=== PATIENT | female | born 1935 | race Caucasian/White ===

== ENCOUNTER 2016-08-24 21:24 | Inpatient (IN) | payer MEDICARE, BC ==
[~2016-08-24] VITALS: Ht 149.9 cm; Wt 53.1 kg
[2016-08-24 19:00] VITALS: BP 183/52
[~2016-08-24 21:24] MED LIST: AMITIZA24 MCG PO; BENADRYL25 MG PO; CARAFATE1 G PO; ELIQUIS2.5 MG PO; GUAIFENESI100 MG/5 M; K-DUR20 MEQ PO; LASIX40 MG PO; LOMOTIL TABLET1 TAB PO; LONITEN2.5 MG PO; METOPROLOL TART50 MG PO; NEPHRO-VITE RX1 TAB PO; NORVASC10 MG PO; PHENERGAN25 M1; PRAVACHOL20 MG PO; PRILOSEC20 MG PO; ULTRAM50 MG PO; VITAMIN D31000 UNI2 PO
[2016-08-24] MEDS ORDERED: PHOSLO667 MG PO (21:41)
[2016-08-24] MEDS ORDERED: MECLIZINE HCL25 MG PO (21:42)
[2016-08-24] MEDS ORDERED: CELEXA20 MG PO ×2 (21:43→21:53)
[2016-08-24] MEDS ORDERED: CARDIZEM CD180 MG PO (21:53)
[2016-08-24] MEDS ORDERED: ATIVAN0.5 MG PO (21:54)
[2016-08-24] MEDS ORDERED: TEMAZEPAM30 MG PO (21:54)
[2016-08-24] MEDS ORDERED: COUMADIN2.5 MG PO (21:54)
--- NOTE | 2016-08-24 23:55 | NUR ---
RESTING ON LEFT SIDE, RESPERATIONS EVEN, NO S/S DISTRESS NOTED.
[2016-08-25] VITALS: BP 130/108
--- NOTE | 2016-08-25 03:12 | NUR ---
PARCEL POST OFFICER AT BEDSIDE TO OBTAIN VITALS, CALL LIGHT IN REACH. WILL CONTINUE TO MONITOR.
[2016-08-25 04:34] VITALS: BP 177/55
--- NOTE | 2016-08-25 05:13 | NUR ---
PT YELLING OUT FOR HER , INFORMED HER THAT HE WENT TO ICU WAITING AREA TO GET SOME REST AND WILL BE BACK IN A LITTLE BIT, PT STATED SHE NEEDS MANOHAR RIGHT NOW, ANTONINA ESPINOZA WALKED OVER TO ICU WAITING AREA AND BROUGHT PTS BACK TO HER ROOM.
[2016-08-25 06:00] LABS: BASOPHILS 0.4 % (0-2); EOSINOPHILS 2.3 % (0-7); HEMATOCRIT 38.4 % (36.0-48.0); HEMOGLOBIN 12.2 g/dL (12-16); IMMATURE GRANULOCYTES 0.9 % (0-5); LYMPHOCYTES 20.8 % (15-50); MCH 31.1 pg (26.0-34.0); MCHC 31.8 g/dL (31.0-37.0); MEAN PLATELET VOLUME 11.1 fL (7.4-10.4); MONOCYTES 10.1 % (2-11); NEUTROPHILS 65.5 % (40-80); PLATELET COUNT 232 10x3/uL (130-400); RBC 3.92 10x6/uL (4.00-5.40); RDW 13.3 % (11.5-14.5); WBC 10.6 10x3/uL (4.8-10.8)
[2016-08-25 06:16] LABS: ANION GAP 15.5 mmol/L (8-16); CALCIUM 8.2 mg/dL (8.5-10.1); CARBON DIOXIDE 28.4 mmol/L (21.0-32.0); CREATININE - SERUM 5.3 mg/dL (0.6-1.3); POTASSIUM - SERUM 3.9 mmol/L (3.5-5.1)
--- NOTE | 2016-08-25 07:57 | NUR ---
0715- AM ROUNDING- RECEIVED REPORT FROM DRAW FIRE OPERATOR NURSE GREGG. PT IS CURRENTLY LAYING IN BED ON BACK WITH EYES OPEN RESTING. IS AT BEDSIDE. PT APPEARS PLEASANTLY CONFUSED. ON ROOM AIR. NO MONITOR. IV SEEN TO RIGHT HAND THAT IS CURRENTLY SALINE LOCKED. RESERVE LEFT ARM FOR AVF. NO NEED AT CURRENT TIME. WILL CONTINUE TO MONITOR AND CONTINUE WITH PLAN OF CARE.
[2016-08-25 08:19] VITALS: BP 150/46
--- NOTE | 2016-08-25 09:45 | NUR ---
PT IS STATING THERE ARE "SNAKES IN HER WINDOW". PT ALSO STATES THAT HER SKIN IS PEELING OFF (REFFERING TO THE TAPE ON HER IV CATHETER).
--- NOTE | 2016-08-25 11:14 | NUR ---
CALLED INTO PTS ROOM FOR PT GETTING OOB. BED ALARM WAS ON. PT HAD TAKEN NON-SKID SOCKS OFF AND HAD SHOES ON. ASSISTED PT BACK TO BED. PLACED NON-SKID SOCKS BACK ON PT AND TURNED BED ALARM ON. PT HAD TAKEN IV (TO RIGHT HAND) OUT. UNABLE TO KEEP IV CATHETER IN PTS RIGHT ARM (RESERVE LEFT ARM FOR AVF). BED IS IN LOW POSITION AND SIDE RAILS ARE UP X2. INFORMED PT TO STAY IN BED AND USE CALL LIGHT IF NEEDING ASSISTANCE OOB. IS NOW AT BEDSIDE. WILL CONTINUE TO MONITOR.
[2016-08-25 12:06] VITALS: BP 142/44
--- NOTE | 2016-08-25 13:36 | NUR ---
BED IS RESTING IN BED. IS AT BEDSIDE. BED ALARM IS ON, BED IS IN LOW POSTION, CALL LIGHT IS IN REACH, AND NON-SKID SOCKS ARE ON. WILL CONTINUE TO MONITOR.
--- NOTE | 2016-08-25 14:16 | NUR ---
Spoke with Ladonna RN in [facility]. She stated that the patient would be accepted if the PCP feels she is medically stable. Call has been placed to Sandrita Almanza APN for renal.
[2016-08-25 14:34] VITALS: Ht 149.9 cm; Wt 53.1 kg
[2016-08-25] MEDS ORDERED: ZYPREXA2.5 MG PO ×2 (14:50)
[2016-08-25 15:47] VITALS: BP 128/40
--- NOTE | 2016-08-25 17:13 | NUR ---
Patient Name: DANIELLA COFFEY Admission Status: Elective Accout number: [id number] Admission Date: 08-24-2016 : 1935 Admission Diagnosis: Attending: NICOLLE Current LOS: 1 Anticipated DC Date: 08-25-2016 Planned Disposition: Inpatient Psych Facility Primary Insurance: MEDICARE A & B PLANNED EXTERNAL PROVIDER: CORRECTION Discharge Planning Comments: * Is the patient Alert and Oriented? Yes 0 * How many steps to enter\\exit or inside your home? 4 0 * PCP DR. CINTHYA NEGRETE 0 * Pharmacy [facility] IN [place] OR [facility] MAIL ORDER 0 * Preadmission Environment Home with Family 0 * ADLs Partial Dependent 0 * Partial ADLs (Assistance needed) Medication Management 0 * Equipment Other 0 * Other Equipment HEARING AID NO MEDICAL EQUIPMENT PROVIDER PREFERENCE 0 * List name and contact numbers for known caregivers / representatives who currently or will assist patient after discharge: ELIZABETH COFFEY, SPOUSE, 0 * Community resources currently utilized Home Health Other 0 * Please name any agencies selected above. [facility] OUTPATIENT DIALYSIS, [facility], [place], 3 DAYS WEEKLY, 1000AM, [facility] 0 * Additional services required to return to the preadmission environment? Yes * Can the patient safely return to the preadmission environment? Yes 0 * Has this patient been hospitalized within the prior 30 days at any hospital? No 0 CM RECEIVED DISCHARGE ORDER, MET WITH PT IN ROOM. INITIAL ASSESSMENT COMPLETED PER CHECKLIST ABOVE. PT IS VERY HARD OF HEARING, HEARING AIDE IN LEFT EAR DID NOT APPEAR TO BE WORKING AT ALL. PT REPORTS SHE IS AWARE SHE IS GOING DOWNSTAIRS TODAY SO THEY CAN "CHECK HER BLOOD" AND STATES SHE HAS TALKED TO THE DOCTOR AND HER ABOUT IT TODAY. CM EXLAINED CORRECTION SERVICES TO PT, PT IN AGREEMENT WITH DISCHARGE "DOWN THERE" AND AGAIN REPORTS HE KNOWS AND THE DOCTOR TALKED TO THEM ABOUT IT ALREADY. Carpentry Foreman: Jesus Estrada
--- NOTE | 2016-08-25 18:25 | NUR ---
D/C - VERBAL D/C INSTRUCTIONS GIVEN TO PT AND . CALLED REPORT TO [facility]. WRITTEN D/C INSTRUCTIONS GIVEN TO NURSE IN [facility]. NO IV OR MONITOR TO REMOVE. LEFT FLOOR VIA WHEELCHAIR WITH HOSPITAL STAFF TO [facility]. WILL D/C
== END 2016-08-25 18:29 | disposition short-term general hospital (02) | DRG 947 ==
LOC: D.M2 21:24
PROVIDERS: ADMIT Internal Medicine Nephrology
DX: R41.0 Disorientation, unspecified (principal); N18.6 End stage renal disease; I13.2 Hypertensive heart and chronic kidney disease with heart failure and with stage 5 chronic kidney disease, or end stage renal disease; G30.1 Alzheimer's disease with late onset; F02.80 Dementia in other diseases classified elsewhere, unspecified severity, without behavioral disturbance, psychotic disturbance, mood disturbance, and anxiety; J44.9 Chronic obstructive pulmonary disease, unspecified; K21.9 Gastro-esophageal reflux disease without esophagitis; I50.9 Heart failure, unspecified; Z99.2 Dependence on renal dialysis; Z86.73 Personal history of transient ischemic attack (TIA), and cerebral infarction without residual deficits; Z87.891 Personal history of nicotine dependence

== ENCOUNTER 2016-08-25 15:29 | Inpatient (IN) | payer MEDICARE, BC ==
[~2016-08-25] VITALS: Ht 151.8 cm; Wt 52.8 kg
[~2016-08-25 15:29] MED LIST changes: +ATIVAN0.5 MG PO; +CARDIZEM CD180 MG PO; +CELEXA20 MG PO; +COUMADIN2.5 MG PO; +MECLIZINE HCL25 MG PO; +PHOSLO667 MG PO; +TEMAZEPAM30 MG PO; +ZYPREXA2.5 MG PO
--- NOTE | 2016-08-25 18:30 | NUR ---
PATIENT ADMITTED FROM [facility], SHE HAS INCREASED CONFUSION AND SHE HAS BEEN HALLUCINATING SEEING SNAKES OUT THE HOSPITAL WINDOW, SHE ALSO BELIEVES HER SKIN IS PEELING. PATIENT IS UNABLE TO WALK, SHE IS UNSTEADY. SPOUSE TOOK HER JEWLRY HOME. PATIENT IS [place] AND CAN NOT HEAR AT ALL IN HER RIGHT EAR, SHE CAN HEAR OUT OF THE LEFT EAR. 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 SHE IS ON DIALYSIS, SHE HAS A FISTULA IN HER LEFT UPPER ARM. SHE WEARS GLASSES THAT ARE OF YELLOW METAL FRAME. SHE IS IN A W/C AND SHE IS PLEASANT AND CLAM. NO SIGNS OF HALLUCINATIONS YET.
[2016-08-25 19:00] VITALS: BP 118/64
[2016-08-25 19:17] VITALS: BP 118/64; BMI 23.4
--- NOTE | 2016-08-25 21:03 | NUR ---
RECEIVED PT SITTING IN WC, PT IS SMILING, ADM 2100 MEDS PO PER MD ORDERS WITH FRESH H20, PT COOPERATIVE IN TAKING MEDS, WILL CONTINUE POC
[2016-08-25 21:53] VITALS: BP 118/64
[2016-08-26 06:47] LABS: HEMOGLOBIN A1C 5.2 % (4.8-6.0)
[2016-08-26 06:57] LABS: CHOL - HDL RATIO 2.5 ratio (2.3-4.1); LDL-HDL RATIO 1.3 ratio (1.5-3.5); THYROID STIMULATING HORMONE 2.05 uIU/mL (0.36-3.74)
[2016-08-26 07:37] VITALS: BMI 23.5
[2016-08-26 07:59] VITALS: BP 163/53
--- NOTE | 2016-08-26 09:00 | NUR ---
ORIENTED TO PERSON AND PLACE. SHE IS VERY [place] AND DOESN'T UNDERSTAND WHAT IS BEING SAID. LEFT FOREARM HAS AV FISTULA WITH A GOOD THRILL NOTED. DR. MICHAEL LEGER EVENTS ASSOCIATE WAS NOTIFIED OF RENAL CONSULT. ADMINISTERED PRESCRIBED MEDS. VSS. MEDICATION COMPLIANT. FALL PRECAUTIONS MAINTAINED. WILL CONTINUE PLAN OF CARE.
[2016-08-26 12:03] LABS: ALBUMIN 3.4 g/dL (3.4-5.0); ANION GAP 18.2 mmol/L (8-16); BILIRUBIN - TOTAL 0.36 mg/dL (0.2-1.3); CALCIUM 8.9 mg/dL (8.5-10.1); CARBON DIOXIDE 25.8 mmol/L (21.0-32.0); PROTEIN - SERUM 7.1 g/dL (6.4-8.2); URIC ACID 5.2 mg/dL (2.6-7.2)
[2016-08-26 12:08] LABS: BASOPHILS 0.6 % (0-2); HEMATOCRIT 39.8 % (36.0-48.0); HEMOGLOBIN 12.9 g/dL (12-16); IMMATURE GRANULOCYTES 0.9 % (0-5); LYMPHOCYTES 24.4 % (15-50); MCH 31.5 pg (26.0-34.0); MCHC 32.4 g/dL (31.0-37.0); MCV 97.3 fL (80.0-100.0); MEAN PLATELET VOLUME 11.5 fL (7.4-10.4); MONOCYTES 9.1 % (2-11); PLATELET COUNT 262 10x3/uL (130-400); RBC 4.09 10x6/uL (4.00-5.40); RDW 13.2 % (11.5-14.5); WBC 11.8 10x3/uL (4.8-10.8)
[2016-08-26 12:11] LABS: CREATININE - SERUM 7.5 mg/dL (0.6-1.3)
[2016-08-26 13:14] VITALS: Ht 151.8 cm; Wt 52.8 kg
[2016-08-26 15:46] LABS: INR 1.06 (0.85-1.17); PROTIME 13.6 SECONDS (11.6-15.0)
--- NOTE | 2016-08-26 18:00 | NUR ---
RECEIVED IN DINING ROOM AREA SITTING AT TABLE WITH PEERS. CALM AND COOPERATIVE WITH CARE AND ASSESSMENTS. NO SIGNS OF HALLUCIANTIONS. REDIRECT AND REORIENT NEEDED. CONTINUES TO SIT QUIETLY IN DINING AREA. CONTINUE PLAN OF CARE
[2016-08-26 19:30] VITALS: BP 154/82
[2016-08-26 21:32] VITALS: BP 154/82
[2016-08-27 06:19] LABS: BASOPHILS 0.3 % (0-2); EOSINOPHILS 2.1 % (0-7); HEMATOCRIT 36.8 % (36.0-48.0); IMMATURE GRANULOCYTES 0.9 % (0-5); LYMPHOCYTES 28.5 % (15-50); MCH 31.1 pg (26.0-34.0); MCHC 32.6 g/dL (31.0-37.0); MEAN PLATELET VOLUME 10.8 fL (7.4-10.4); MONOCYTES 9.3 % (2-11); NEUTROPHILS 58.9 % (40-80); PLATELET COUNT 249 10x3/uL (130-400); RBC 3.86 10x6/uL (4.00-5.40); RDW 13.1 % (11.5-14.5)
[2016-08-27 06:21] LABS: MCV 95.3 fL (80.0-100.0)
[2016-08-27 06:44] LABS: ANION GAP 23.6 mmol/L (8-16); CALCIUM 8.4 mg/dL (8.5-10.1); CARBON DIOXIDE 21.6 mmol/L (21.0-32.0); CREATININE - SERUM 9.3 mg/dL (0.6-1.3); PHOSPHOROUS 7.6 mg/dL (2.5-4.9); POTASSIUM - SERUM 4.2 mmol/L (3.5-5.1)
[2016-08-27 07:19] LABS: RAPID PLASMA REAGIN Non Reactive (Non Reactive)
[2016-08-27 08:16] LABS: FOLATE (FOLIC ACID) - SERUM 16.9 ng/mL (>3.0)
--- NOTE | 2016-08-27 09:38 | NUR ---
PT REFUSES TO EAT BREAKFAST KEEPS FALLING BACK ASLEEP. ATTEMPTED SEVERAL TIMES TO GIVE PT HER MORNING MEDICATIONS AND SHE HOLLERS "STOP YOU'RE HURTING ME" PTS MANUAL BP VIA R.ARM IS 128/50 WITH HR 94. WILL CONTINUE TO MONITER AND TRY MEDICATIONS AGAIN LATER WHEN SHE WAKES UP A LITTLE MORE. NIGHTSHIFT NURSE STATES PT STAYED AWAKE ALL NIGHT SO SHE IS MOST LIKELY CATCHING UP ON SLEEP. PT APPARENTLY MISSED DIALYSIS YESTERDAY AND IS GONNA BE DIALYZED TODAY. PT LEAVING DAYROOM NOW TO GO BACK TO HER ROOM TO HAVE DIALYSIS. WILL CTM.
[2016-08-27 09:57] VITALS: BP 128/50
--- NOTE | 2016-08-27 11:06 | NUR ---
PT IN DIALYSIS AND SLEEPING. NO CURRENT NEEDS NOTED. WILL CTM.
[2016-08-27 13:11] LABS: VITAMIN D 25 HYDROXY 14.1 ng/mL (30.0-100.0)
--- NOTE | 2016-08-28 00:51 | NUR ---
B) Recieved patient in the day room, alert and oriented to self, calm and cooperative this shift, no behaviors noted, I) Administered perscribed medications, monitored for falls and safety, R) Medication compliant, friendly and pleasant, P) Continue plan of care.
[2016-08-28 07:00] VITALS: BP 110/50
[2016-08-28 07:28] LABS: BASOPHILS 0.5 % (0-2); EOSINOPHILS 1.8 % (0-7); HEMATOCRIT 40.8 % (36.0-48.0); HEMOGLOBIN 13.2 g/dL (12-16); LYMPHOCYTES 24.5 % (15-50); MCH 31.4 pg (26.0-34.0); MCHC 32.4 g/dL (31.0-37.0); MCV 97.1 fL (80.0-100.0); MEAN PLATELET VOLUME 11.7 fL (7.4-10.4); MONOCYTES 11.4 % (2-11); NEUTROPHILS 60.8 % (40-80); PLATELET COUNT 228 10x3/uL (130-400); RDW 13.4 % (11.5-14.5); WBC 11.3 10x3/uL (4.8-10.8)
[2016-08-28 10:42] LABS: ANION GAP 22.9 mmol/L (8-16); CALCIUM 8.9 mg/dL (8.5-10.1); CARBON DIOXIDE 24.1 mmol/L (21.0-32.0); CREATININE - SERUM 7.1 mg/dL (0.6-1.3); PHOSPHOROUS 5.7 mg/dL (2.5-4.9)
--- NOTE | 2016-08-28 11:00 | NUR ---
B) SITTING QUIETLY IN W/C. WATCHING TV. AWAKE AND ALERT. ABLE TO EXPRESS NEEDS. I) ADMINISTER PRESCRIBED MEDS. VSS.
--- NOTE | 2016-08-28 19:57 | NUR ---
RECEIVED IN DAYROOM. SITTING IN A WHEELCHAIR. CALM AND COOPERATIVE WITH CARE AND ASSESSMENTS. NO SIGNS OF HALLUCIANTIONS. SOCIALIZING AT TIMES WITH PEERS. ENCOURAGE TO EXPRESS NEEDS. CONTINUE PLAN OF CARE.
[2016-08-28 21:39] VITALS: BP 100/39
[2016-08-29 06:22] LABS: BASOPHILS 0.3 % (0-2); EOSINOPHILS 2.2 % (0-7); HEMATOCRIT 40.1 % (36.0-48.0); HEMOGLOBIN 12.8 g/dL (12-16); IMMATURE GRANULOCYTES 1.3 % (0-5); LYMPHOCYTES 22.7 % (15-50); MCH 31.1 pg (26.0-34.0); MCHC 31.9 g/dL (31.0-37.0); MCV 97.6 fL (80.0-100.0); MEAN PLATELET VOLUME 11.6 fL (7.4-10.4); MONOCYTES 8.3 % (2-11); NEUTROPHILS 65.2 % (40-80); PLATELET COUNT 228 10x3/uL (130-400); RBC 4.11 10x6/uL (4.00-5.40); RDW 13.3 % (11.5-14.5)
[2016-08-29 06:23] LABS: WBC 14.3 10x3/uL (4.8-10.8)
[2016-08-29 06:34] LABS: INR 1.2 (0.85-1.17); PROTIME 15.1 SECONDS (11.6-15.0)
[2016-08-29 06:41] LABS: ANION GAP 18.6 mmol/L (8-16); CALCIUM 8.4 mg/dL (8.5-10.1); CARBON DIOXIDE 27.2 mmol/L (21.0-32.0); CREATININE - SERUM 8.5 mg/dL (0.6-1.3); PHOSPHOROUS 6.7 mg/dL (2.5-4.9); POTASSIUM - SERUM 3.8 mmol/L (3.5-5.1)
[2016-08-29 07:00] VITALS: BP 100/48
--- NOTE | 2016-08-29 10:34 | NUR ---
NORVAS 10MG HELD DUE TO B/P 100/48.
--- NOTE | 2016-08-29 10:44 | NUR ---
ORIENTED TO PERSON ONLY. PT IS VERY [place] BUT SHE IS ABLE TO EXPRESS NEEDS TO STAFF. MEDICATIONS GIVEN BUT HER NORVASC WAS HELD DUE TO LOW BLOOD PRESSURE. NO AGGRESSION NOTED. NO HALLUCINATIONS NOTED. FALL PRECAUTIONS MAINTAINED. WILL CONTINUE TO MONITOR AND CONTINUE WITH PLAN OF CARE.
[2016-08-29 21:05] VITALS: BP 118/48
--- NOTE | 2016-08-29 22:49 | NUR ---
RECEIVED IN DAYROOM. SITTING IN A WHEELCHAIR SOCIALIZING WITH PEERS. CALM AND COOPERATIVE WITH CARE AND ASSESSMENTS. NO SIGNS OF HALLUCINATIONS. ENCOURAGE TO EXPRESS NEEDS. CONTINUE PLAN OF CARE
--- NOTE | 2016-08-30 06:50 | NUR ---
PATIENT FALL. FOUND IN FLOOR. BOX ALARM REMOVED. SKIN TEAR TO LEFT ELBOW. SMALL SWOLLEN AREA ON HEAD. DOCTOR MATT CALLED. FAMILY CALLED AND INFORMED OF FALL. CHANGING SAFETY BOX ALARM TO A TANYA ALARM. START NEURO CHECKS.
[2016-08-30 07:09] LABS: BASOPHILS 0.3 % (0-2); EOSINOPHILS 0.9 % (0-7); HEMATOCRIT 38.3 % (36.0-48.0); HEMOGLOBIN 12.5 g/dL (12-16); IMMATURE GRANULOCYTES 1.5 % (0-5); LYMPHOCYTES 13.3 % (15-50); MCH 31.5 pg (26.0-34.0); MCHC 32.6 g/dL (31.0-37.0); MCV 96.5 fL (80.0-100.0); MEAN PLATELET VOLUME 11.1 fL (7.4-10.4); MONOCYTES 7.1 % (2-11); NEUTROPHILS 76.9 % (40-80); RBC 3.97 10x6/uL (4.00-5.40); RDW 13.3 % (11.5-14.5)
[2016-08-30 07:22] LABS: ANION GAP 22.7 mmol/L (8-16); CALCIUM 8.5 mg/dL (8.5-10.1); CARBON DIOXIDE 24.3 mmol/L (21.0-32.0); CREATININE - SERUM 10.4 mg/dL (0.6-1.3); PHOSPHOROUS 7.2 mg/dL (2.5-4.9)
[2016-08-30 07:23] LABS: PLATELET COUNT 285 10x3/uL (130-400); WBC 19.9 10x3/uL (4.8-10.8)
--- NOTE | 2016-08-30 07:30 | NUR ---
RECEIVED IN HALLWAY SITTING IN W/C. NO AGGRESSION OR HALLUCINATIONS NOTED. VERY [place], HAS A HEARING AIDE FOR THE LEFT EAR ONLY. COOPERATIVE WITH ASSESS- MENT, BUT TRIES TO GET UP WITHOUT ASKING FOR ASSISTANCE. MONITOR FOR SAFETY AND FALL PRECAUTIONS. WILL CONTINUE PLAM OF CARE.
--- NOTE | 2016-08-30 07:45 | NUR ---
DR GUTIERREZ ROUNDING. NEW ORDERS RECEIVED AND NOTED. DR RODRIGUEZ ALSO ROUNDING. NEW ORDERS RECEIVED.
[2016-08-30 09:59] VITALS: BP 98/48
--- NOTE | 2016-08-30 15:00 | NUR ---
HEMODIALYSIS AT PATIENT'S BEDSIDE IN PROGRESS.
--- NOTE | 2016-08-30 20:50 | NUR ---
RECEIVED IN BEDROOM. LAYING IN BED WITH EYES OPEN. CALM AND COOPERATIVE WITH CARE AND ASSESSMENTS. CALM AND COOPERATIVE WITH CARE AND ASSESSMENTS. NO SIGNS OF HALLUCINATIONS. RESTING IN BED. CONTINUE PLAN OF CARE
[2016-08-31 06:24] LABS: BASOPHILS 0.4 % (0-2); EOSINOPHILS 2.1 % (0-7); HEMATOCRIT 40.3 % (36.0-48.0); HEMOGLOBIN 13.2 g/dL (12-16); IMMATURE GRANULOCYTES 1.3 % (0-5); MCH 31.7 pg (26.0-34.0); MCHC 32.8 g/dL (31.0-37.0); MCV 96.9 fL (80.0-100.0); MEAN PLATELET VOLUME 11.2 fL (7.4-10.4); MONOCYTES 11.3 % (2-11); NEUTROPHILS 71.9 % (40-80); PLATELET COUNT 217 10x3/uL (130-400); RBC 4.16 10x6/uL (4.00-5.40); RDW 13.4 % (11.5-14.5); WBC 12.1 10x3/uL (4.8-10.8)
[2016-08-31 06:33] LABS: INR 1.46 (0.85-1.17); PROTIME 17.6 SECONDS (11.6-15.0)
[2016-08-31 06:57] LABS: ANION GAP 22.2 mmol/L (8-16); CALCIUM 8.9 mg/dL (8.5-10.1); CREATININE - SERUM 6.5 mg/dL (0.6-1.3); PHOSPHOROUS 5.2 mg/dL (2.5-4.9); POTASSIUM - SERUM 4.2 mmol/L (3.5-5.1)
[2016-08-31 08:30] VITALS: BP 118/53
[2016-08-31 09:00] VITALS: BP 118/53
--- NOTE | 2016-08-31 15:16 | NUR ---
B) PATIENT IS AWAKE AND ALERT, SHE DID FUSS A LITTLE BIT THIS AM AT [place] RN BECAUSE SHE WANTED TO STAND AND SHE HAS FALLEN BEFORE AND [place] WAS REDIRECTING HER TO STAY SEATED, PATIENT SAID "I DON'T LIKE IT WHEN PEOPLE DON'T LISTEN TO ME" PATIENT IS UNSTEADY AND HAS FALLEN. PATIENT HAS POOR SHORT TERM MEMORY RECALL AND INTERMITTANT CONFUSION. I) PROVIDE PRESCRIBED MEDS. R) PATIENT IS COMPLIANT WITH MEDS AND UNIT MILIEU. P) CONTINUE POC.
[2016-08-31 19:30] VITALS: BP 135/64
--- NOTE | 2016-09-01 00:13 | NUR ---
B) Recieved patient in the hallway alert and oriented to self and being in a hospital, calm and cooperative with care and assessment, I) Administered perscribed medications, monitored for falls and safety, R) Medication compliant, resting quietly now, P) Continue plan of care.
[2016-09-01 07:31] VITALS: BP 132/38
--- NOTE | 2016-09-01 08:00 | NUR ---
B) EXPLAINED TO PATIENT THAT WE NEED TO GET AN IN AND OUT CATHETER FOR A URINE SAMPLE. SHE SAYS "OH, WHAT'S WRONG WITH ME" EXPLAINED THAT NOTHING IS WROMNG IT IS A ROUTINE TEST. SHE SAID "CAN I WAIT UNTIL AFTER BREAKFAST" PATIENT IS ALERT AND PLEASANT, ORIENTED TO PERSON. I) PROVIDE PRESCRIBED MEDS. R) PATIENT IS COMPLIANT WITH MEDS AND UNIT MILIEU. PATIENT IS SITTING IN A KYLE CHAIR AND SHE NEEDS STAFF ASSIST TO STAND AND TRANSFER, PATIENT NEEDS REDIRECTION TO NOT STAND ALONE. SHE FORGETS SHE IS UNABLE TO STAND. P) CONTINUE POC.
--- NOTE | 2016-09-01 09:25 | NUR ---
OBTAINED URINE BY IN AND OUT CATH. WILL TAKE TO THE LAB.
[2016-09-01 10:38] LABS: APPEARANCE SLT CLOUDY (CLEAR); BILIRUBIN NEGATIVE (NEGATIVE); COLOR YELLOW (YELLOW); GLUCOSE NEGATIVE (NEGATIVE); KETONE NEGATIVE (NEGATIVE); LEUKOCYTE ESTERASE 1+ (NEGATIVE); NITRITE NEGATIVE (NEGATIVE); PROTEIN 1+ mg/dL (NEGATIVE); SPECIFIC GRAVITY 1.015 (1.005-1.020); UROBILINOGEN NORMAL (NORMAL)
[2016-09-01 10:39] LABS: BACTERIA MODERATE /hpf (NONE SEEN); EPITHELIAL CELLS 0-5 /hpf (0-5); RED CELLS - URINE 0-5 /hpf (0-5); WHITE CELLS - URINE 0-5 /hpf (0-5)
[2016-09-01 10:40] LABS: AMORPHOUS SEDIMENT <1+ /lpf (NONE SEEN); MUCUS >1+ /lpf (NONE SEEN); YEAST >1+ /hpf (NONE SEEN)
--- NOTE | 2016-09-01 13:52 | NUR ---
Dialysis Coordinator: MELISSA [facility] Mon/Wed/Fri am shift. Medical records forwarded to the home unit for their records. HARI COLON.
--- NOTE | 2016-09-01 14:32 | NUR ---
NUTRITION MONITORING & EVAL CHART REVIEWED. RENAL DIET WITH ~ 75% INTAKE RECENT MEALS. WILL CONTINUE TO PROVIDE DIET, MONITOR INTAKE. RD FOLLOWING
[2016-09-01 19:15] VITALS: BP 106/52
--- NOTE | 2016-09-01 20:15 | NUR ---
B) Patient received in Day Room, angry and argumentative with Tech. Refusing to allow him to take her Vital Signs. Demanding to be taken to see her first. Claims she has been in this uatsdin for 16 years and has never been treated like this. Yelling out upsetting peers. Having loud delusional conversations with select peers. I) Reoriented PRN, redirected PRN, given medications as per orders. R) Did allow staff to take her VS after much explanation and prompting to comply. Did take her HS dose of Seroquel. P) Will continue to monitor per plan of care.
--- NOTE | 2016-09-01 22:13 | NUR ---
Continued yelling, angry, threatening harm to staff. "I am going to knock your lights out if you don't let me out of here." ... "I can throw that computer across the floor, you better lock that door." Given Haldol 2mg IM and Ativan 0.5mg IM for extreme anxiety.
--- NOTE | 2016-09-02 07:52 | NUR ---
LATE ENTRY FROM 09/01 PT'S ATTENDED FAMILY GROUP. SW DISCUSSED DISCHARGE PLANS AND TREATMENT ON THE UNIT. PT'S VERBALIZED UNDERSTANDING.
--- NOTE | 2016-09-02 10:09 | NUR ---
B) PATIENT IS SLEEPY TODAY AND SHE C/O LEG PAIN. PATIENT ATE BREAKFAST AND SHE REQUESTS TO GO BACK TO BED. PATIENT IS UNABLE TO STAND AND STAFF HAS TO ASSIST HER TO TRANSFER. SHE IS DEMANDING. I) PROVIDE PRESCRIBED MEDS. R) PATIENT IS COMPLIANT WITH MEDS. P) CONTINUE POC.
[2016-09-02 10:40] VITALS: BP 120/52
[2016-09-02 19:30] VITALS: BP 144/36
--- NOTE | 2016-09-03 03:10 | NUR ---
B) Recieved patient in the day room, alert and oriented to self and being in a hospital. demanding at times and [place], I) Administered perscribed medications, monitored for falls and safety, R) medication compliant, attention seeking, P) Continue plan of care.
[2016-09-03 06:38] LABS: BASOPHILS 0.3 % (0-2); EOSINOPHILS 2.4 % (0-7); HEMATOCRIT 36.4 % (36.0-48.0); HEMOGLOBIN 11.6 g/dL (12-16); IMMATURE GRANULOCYTES 1.3 % (0-5); MCH 31.3 pg (26.0-34.0); MCHC 31.9 g/dL (31.0-37.0); MCV 98.1 fL (80.0-100.0); MEAN PLATELET VOLUME 11.4 fL (7.4-10.4); MONOCYTES 10.9 % (2-11); NEUTROPHILS 70.1 % (40-80); PLATELET COUNT 212 10x3/uL (130-400); RBC 3.71 10x6/uL (4.00-5.40); RDW 13.5 % (11.5-14.5)
[2016-09-03 06:41] LABS: ANION GAP 21.4 mmol/L (8-16); CALCIUM 9.3 mg/dL (8.5-10.1); CARBON DIOXIDE 24.1 mmol/L (21.0-32.0); CREATININE - SERUM 8.6 mg/dL (0.6-1.3); POTASSIUM - SERUM 4.5 mmol/L (3.5-5.1)
[2016-09-03 06:44] LABS: INR 1.77 (0.85-1.17); PROTIME 20.6 SECONDS (11.6-15.0)
[2016-09-03 10:36] VITALS: BP 140/61
--- NOTE | 2016-09-03 12:03 | NUR ---
PATIENT HAS BEEN VERY ARGUEMENTATIVE AND ANGRY WITH STAFF, SAYS SHE IS VERY ANXIOUS AND CAN'T KEEP HER LEGS STILL. CALLING TECH "FAT BITCH AND SHE WAS GOING TO POOP ON HERSELF AND SMEAR IT ON HER FACE." UNABLE TO REDIRECT. ATIVAN 0.5 MG PO GIVEN FOR ANXIETY.
--- NOTE | 2016-09-03 13:35 | NUR ---
AFTER LUNCH, SHE COMPLAINED OF MID-CHEST DISCOMFORT AND DIFFICULTY BREATHING. VITAL SIGNS TAKEN. B/P=122/62, P=53, O2 SAT=97% NO DISTRESS NOTED. MOVED HER INTO WHEELCHAIR TO MOVE AROUND A LITTLE BIT.
[2016-09-03 19:30] VITALS: BP 138/40
--- NOTE | 2016-09-03 21:45 | NUR ---
RECEIVED IN BEDROOM. LAYING IN BED WITH EYES OPEN. YELLING OUT AT TIMES. DEMANDING. COOPERATIVE WITH ASSESSMENT. REDIRECT AND REORIENT NEEDED. CONTINUES TO RESTING BED EYS OPEN YELLING OUT AT TIMES. CONTINUE PLAN OF CARE
[2016-09-04 07:00] VITALS: BP 120/64
--- NOTE | 2016-09-04 08:30 | NUR ---
B) AWAKE AND ALERT SITTING IN RECLINER AT NURSES STATION. ORIENTED TO PERSON AND PLACE. CALM AND COOPERATIVE WITH ASSESSMENT, DEMANDING WITH EXPRSSING HER NEEDS. NO AGGRESSION NOTED. I) ADNINISTER PRESCRIBED MEDS. VSS R) COMPLIANT WITH TAKING MEDS AND UNIT MILIEU. P) CONTINUE PLAN OF CARE.
[2016-09-04 19:30] VITALS: BP 161/32
--- NOTE | 2016-09-04 20:09 | NUR ---
RECEIVED IN HALLWAY. SITTING IN RECLINING CHAIR WITH EYES OPEN. CONFUSED. CALM AND COOPERATIVE WITH CARE AND ASSESSMENTS. NO SIGNS OF HALLUCINATIONS. CONTINUES TO REST IN RECLINER. CONTINUE PLAN OF CARE
[2016-09-05 07:00] VITALS: BP 145/37
--- NOTE | 2016-09-05 10:00 | NUR ---
AWAKE AND ALERT IN RECLINER, ORIENTED TO PERSON AND PLACE. CALM AND COOPERATIVE DWITH ASSESSMENT. NO AGGRESSION NOTED. ADMINISTER PRESCRIBED MEDS. VSS. REDIRECT AND REORIENT NEEDED. COMPLIANT WITH TAKING MEDS. WILL CONTINUE CURRENT PLAN OF CARE.
[2016-09-05] MEDS ORDERED: AUGMENTIN 500-11 TA1 PO (11:55)
[2016-09-05] MEDS ORDERED: DIFLUCAN100 MG PO (11:55)
[2016-09-05] MEDS ORDERED: LEXAPRO10 MG PO (11:56)
[2016-09-05] MEDS ORDERED: SEROQUEL25 MG PO (11:57)
[2016-09-05 19:50] VITALS: BP 133/48; BP 153/85
--- NOTE | 2016-09-05 21:06 | NUR ---
RECEIVED IN HALLWAY. SITTING IN RECLINING CHAIR. CALM AND COOPERATIVE WITH CARE AND ASSESSMENTS. NO SIGNS OF HALLUCIANTIONS. ENCOURAGE TO EXPRESS NEEDS. RESTING IN RECLINER AT NURSES STATION AT THIS TIME. CONTINUE PLAN OF CARE
[2016-09-06 07:00] VITALS: BP 120/32
--- NOTE | 2016-09-06 08:15 | NUR ---
COMPLAINING OF BACK PAIN- TYLENOL 325 MG PO GIVEN FOR LEVEL #8 ON SCALE.
--- NOTE | 2016-09-06 08:30 | NUR ---
DIALYSIS HERE TO DO DIALYSIS IN ROOM. LYING IN BED RESTING.
--- NOTE | 2016-09-06 11:00 | NUR ---
DISCHARGED HOME WITH HER VIA PRIVATE CARE IN A WHEELCHAIR. DISCHARGE PAPERS SIGNS AND GIVEN TO . PRESCRIPTIONS CALLED IN TO [facility].
== END 2016-09-06 11:00 | disposition home or self-care (01) | DRG 56 ==
LOC: D.PSYCH 15:29
PROVIDERS: Internal Medicine Nephrology; Psychiatry & Neurology Psychiatry; ADMIT Psychiatry & Neurology Psychiatry
DX: I69.919 Unspecified symptoms and signs involving cognitive functions following unspecified cerebrovascular disease (principal); N18.6 End stage renal disease; F01.51 Vascular dementia, unspecified severity, with behavioral disturbance; I12.0 Hypertensive chronic kidney disease with stage 5 chronic kidney disease or end stage renal disease; F32.9 Major depressive disorder, single episode, unspecified; Z99.2 Dependence on renal dialysis; I25.10 Atherosclerotic heart disease of native coronary artery without angina pectoris; Z74.09 Other reduced mobility; D63.1 Anemia in chronic kidney disease; I48.91 Unspecified atrial fibrillation

== ENCOUNTER 2016-09-10 10:15 | Inpatient (IN) | payer MEDICARE, BC ==
[2016-09-10] VITALS (14 sets, daily range): BP systolic 111–190; BP diastolic 45–116
[~2016-09-10] VITALS: Ht 149.9 cm; Wt 59.1 kg
[~2016-09-10 10:15] MED LIST changes: +AUGMENTIN 500-11 TA1 PO; +DIFLUCAN100 MG PO; +LEXAPRO10 MG PO; +SEROQUEL25 MG PO
--- NOTE | 2016-09-10 16:32 | NUR ---
1100 RECEIVED PT VIA EMS FROM [facility] ON STRETCHER, AWAKE WITH CONFUSION NOTED TRANSFERRED TO BED AND HOOKED UP TO ICU MONITORS. PT ABLE TO FOLLOW SIMPLE COMMANDS AND ABLE TO ANSWER SOME QUESTIONS. NOTED TO BE [place]. HR LOW IN 30'S, 02 SAT 92% ON 10L NRB. LEFT ARM RESERVE WITH FISTUAL NOTED POSITIVE THRILL AND BRUIT. ADMISSION ASSESMENT AND HISTORY COMPLETED. C/O COCCYX PAIN, R/T FX SACRUM PER ER REPORT. 1130 SPOKE WITH RENAL DOCTOR AND RECEVIED NEW ORDER FOR 1 AMP OF ATROPINE ,AND 1 AMP OF CALCIUM GLUCONATE, BOTH GIVEN. HD NURSE AT BEDSIDE PREPPING PT FOR DIALYSIS, PT VERY ANXIOUS AND AGITATED YELLING OUT, MD IN UNIT AND NEW ORDER FOR 1MG ATIVAN PRN, 1 DOSE GIVEN 1500 CONTINUES TO YELL OUT IN PAIN AND ANXIETY, CALLED MD AND NEW ORDER FOR ULTRAM 50MG BID PRN, ONE DOSE GIVEN, HR IN THE 90'S AND 02 SATS 100%, RT SWITCHED PT TO NC AT 4L 02 SATS 94%, DIALYSIS COMPLETED WITH NO DISTRESS NOTED.
[2016-09-10 18:25] LABS: INR 7.06 (0.85-1.17)
[2016-09-10 18:27] LABS: PROTIME 62.3 SECONDS (11.6-15.0)
--- NOTE | 2016-09-10 19:10 | NUR ---
PATIENT PULLED OUT PIV AND HOLLERING OUT. WILL NOT FOLLOW COMMANDS. BILATERAL WRIST RESTRAINTS PLACED, NEW 22G PIV INSERTED INTO RIGHT HAND. FLUSHES WITH EASE. PRN ATIVAN GIVEN. WILL MONITOR.
--- NOTE | 2016-09-10 21:00 | NUR ---
PATIENT CONTINUES TO HOLLER OUT. REORIENTED.
[2016-09-11] VITALS (24 sets, daily range): BP systolic 109–159; BP diastolic 39–95
--- NOTE | 2016-09-11 01:00 | NUR ---
PATIENT BOOM FOR MOM AND "MANOHAR" TOLD HER THAT HER WENT HOME. CONTINUES TO HOLLER OUT.
[2016-09-11 04:59] LABS: BASOPHILS 0.1 % (0-2); EOSINOPHILS 0.1 % (0-7); HEMATOCRIT 32.1 % (36.0-48.0); HEMOGLOBIN 10.1 g/dL (12-16); LYMPHOCYTES 12.4 % (15-50); MCH 30.9 pg (26.0-34.0); MCHC 31.5 g/dL (31.0-37.0); MCV 98.2 fL (80.0-100.0); MONOCYTES 8.1 % (2-11); NEUTROPHILS 78.3 % (40-80); PLATELET COUNT 251 10x3/uL (130-400); RBC 3.27 10x6/uL (4.00-5.40); RDW 13.5 % (11.5-14.5)
[2016-09-11 05:08] LABS: ANION GAP 16.8 mmol/L (8-16); CALCIUM 8.3 mg/dL (8.5-10.1); CREATININE - SERUM 4.8 mg/dL (0.6-1.3); POTASSIUM - SERUM 4.8 mmol/L (3.5-5.1)
[2016-09-11 05:10] LABS: INR 1.36 (0.85-1.17); PROTIME 16.7 SECONDS (11.6-15.0)
--- NOTE | 2016-09-11 05:36 | NUR ---
BED BATH GIVEN AND LINENS CHANGED. PATIENT TOLERATED WELL.
[2016-09-11 11:48] LABS: APPEARANCE CLEAR (CLEAR); BILIRUBIN NEGATIVE (NEGATIVE); COLOR DK YELLOW (YELLOW); GLUCOSE NEGATIVE (NEGATIVE); KETONE NEGATIVE (NEGATIVE); LEUKOCYTE ESTERASE 1+ (NEGATIVE); NITRITE NEGATIVE (NEGATIVE); PROTEIN 2+ mg/dL (NEGATIVE); SPECIFIC GRAVITY 1.005 (1.005-1.020); UROBILINOGEN NORMAL (NORMAL)
[2016-09-11 11:57] LABS: AMORPHOUS SEDIMENT >1+ /lpf (NONE SEEN); BACTERIA MANY /hpf (NONE SEEN); GRANULAR CAST OCC /lpf (NONE SEEN); HYALINE CAST 0-5 /lpf (NONE SEEN); MUCUS <1+ /lpf (NONE SEEN); RED CELLS - URINE 0-5 /hpf (0-5)
--- NOTE | 2016-09-11 16:30 | NUR ---
0700 RECEIVED PT LAYING IN BED EYES CLOSED, N DISTRESS NOTED, VSS SEE ASSESMENT 0730 WOKE PT UP FOR BREAKFAST ATE ALL OF SRAMBLED EGGS, REQUESTED COFFEE, 1/4 GLASS DRANK, PT SEEMS MORE ALERT TODAY, ANSWERS QUESTIONS APPROP. 0900 AT BEDSIDE 0930 BATH GIVEN, IN AND OUT CATH FOR URINE CX WITH NO DIFFICULTY, SMALL AMOUNT OF DARK COLORED FOUL URINE NOTED FROM BLADDER. PT C/O LEG PAIN, ULTRAM GIVEN SPOKE WITH RENAL WAFER ABRADING MACHINE TENDER ANOUT PT REQUESTING TYLENOL, NEW ORDERS RECEIVED FOR TYLENOL, TYLENOL GIVEN 1230 PT YELLING OUT CONYINOUSLY UNABLE TO BE REDIRECTED, WAFER ABRADING MACHINE TENDER CALLED AND NEW ORDERS FOR XANAX X1, FLEXARIL FOR LEG PAIN AND TO RESTART HOME DOSE OF SEROQUEL 1430 PT SLEEPING ON AND OFF AWAKES TO STIMULI ANSWERS QUESTION APPROP. AT BEDSIDE
--- NOTE | 2016-09-11 19:45 | NUR ---
SHIFT ASSESSMENT COMPLETE. PT IS CONFUSED AND LETHARGIC. REORIENTS EASILY. VERY [place] IN BOTH EARS. DENTURES ON TOP AND ARE IN A CONTAINER BESIDE HER BED. S1S2 AUDIBLE. NS RHYTHM VIA TELEMETRY. RR REGULAR WITH CLEAR LUNG SOUNDS THROUGHOUT ALL LOBES. AV FISTULA TO LEFT UPPER ARM. PERIPHERAL IV SALINE LOC ON R HAND, PATENT. BS ACTIVE IN ALL 4 QUADS. SCAR ON ABD. BANDAGE OVER FISTULA AND L WRIST, CDI. BRUISES NOTED BILAT TO ARMS. SMALL SCAR ON BUTTOCKS. REPOSITIONED FOR COMFORT. CALL LIGHT IN REACH WILL CONTINUE TO MONITOR.
--- NOTE | 2016-09-11 21:00 | NUR ---
PT AWAKE AND ALERT. SHE IS STATING THAT SHE IS HAVING PAIN ON HER BUTTOCKS. ADMINISTERED PRN PAIN MEDICATION, CHANGED PINK PAD DUE TO DRIED BLOOD ON IT, AND REPOSITIONED HER ON HER L SIDE. SHE STATES THAT SHE IS COMFORTABLE AT THE MOMENT. CALL LIGHT IN REACH. BED IN LOWEST POSITION. WILL CONTINUE TO MONITOR.
--- NOTE | 2016-09-11 23:00 | NUR ---
PT O2 SAT DROPPED TO LOW 80'S. PT IS MORE LETHARGIC THAN SHE WAS AT 1930. HER BREATHING RATE IS REGULAR WITH PERIODS OF APNEA. ONCE PT WAS AWAKENED HER O2 SAT WENT BACK UP TO 97%. NOTIFIED RT ABOUT ISSUE. WILL KEEP CLOSE EYE ON O2 SAT. ALARM LIMITS NARROWED. IF CONT. WILL NOTIFY DR. BHARDWAJ. REPOSITIONED PT TO HER R SIDE AND THAT SEEMS TO BE HELPING. REASSESSMENT COMPLETE. NO FURTHER CHANGES NOTED. WILL CONT WITH POC.
[2016-09-12] VITALS (24 sets, daily range): BP systolic 118–181; BP diastolic 39–104; Ht 149.9 cm; Wt 59.1 kg
--- NOTE | 2016-09-12 01:00 | NUR ---
PT RESTING COMFORTABLY. O2 SAT IS 97%. NO SIGNS OF DISTRESS NOTED. VSS. WILL CONTINUE TO MONITOR.
--- NOTE | 2016-09-12 03:20 | NUR ---
REASSESSMENT COMPLETE. O2 SAT HAS NOT BEEN LOWER THAN 95% FOR THE PAST COUPLE OF HOURS. O2 SAT IS CURRENTLY 99%. PT SLEEPING AND HARD TO WAKE DUE TO THE FACT THAT SHE IS EXTREMELY [place]. PT CONTINUES TO BE MORE LETHARGIC THAN WHAT SHE WAS AT 1930. NO FURTHER CHANGES NOTED. CALL LIGHT IN REACH. WILL CONTINUE TO MONITOR.
--- NOTE | 2016-09-12 05:00 | NUR ---
PT SLEEPING PEACEFULLY AT THIS TIME. VSS. NO CHANGES NOTED. WILL CONTINUE WITH POC.
[2016-09-12 05:10] LABS: ANION GAP 17.6 mmol/L (8-16); CALCIUM 7.3 mg/dL (8.5-10.1); CARBON DIOXIDE 28.7 mmol/L (21.0-32.0); POTASSIUM - SERUM 4.3 mmol/L (3.5-5.1)
[2016-09-12 05:15] LABS: BASOPHILS 0.3 % (0-2); EOSINOPHILS 1.7 % (0-7); HEMATOCRIT 27.8 % (36.0-48.0); HEMOGLOBIN 8.7 g/dL (12-16); IMMATURE GRANULOCYTES 1.3 % (0-5); LYMPHOCYTES 24.6 % (15-50); MCH 30.9 pg (26.0-34.0); MCHC 31.3 g/dL (31.0-37.0); MCV 98.6 fL (80.0-100.0); MEAN PLATELET VOLUME 10.9 fL (7.4-10.4); MONOCYTES 10.2 % (2-11); NEUTROPHILS 61.9 % (40-80); PLATELET COUNT 208 10x3/uL (130-400); RBC 2.82 10x6/uL (4.00-5.40); RDW 13.8 % (11.5-14.5)
[2016-09-12 05:16] LABS: WBC 7.7 10x3/uL (4.8-10.8)
[2016-09-12 05:20] LABS: CREATININE - SERUM 6.9 mg/dL (0.6-1.3)
--- NOTE | 2016-09-12 08:06 | NUR ---
PT AWAKE, AND ALERT. COMPLAINING OF BACK PAIN. REPOSITIONED IN BED. BREAKFAST TRAY SET UP. IN ROOM HELPING PT EAT. CALL LIGHT IN REACH.
--- NOTE | 2016-09-12 08:29 | NUR ---
PT REPORTS PAIN 8/10 ON HER BACK. GAVE ULTRAM PRN. WILL CONTINUE TO MONITOR. CALL LIGHT IN REACH. IN ROOM.
--- NOTE | 2016-09-12 10:27 | NUR ---
PT REPORTING PAIN. MOVING LEGS AROUND IN BED. DIALYSIS NURSE IN ROOM. GAVE FLEXERIL PER ORDERS FOR MUSCLE SPASMS. PT PULLED UP IN BED.
--- NOTE | 2016-09-12 10:29 | NUR ---
WILL HOLD ROCEPHIN UNTIL DIALYSIS IS FINISHED.
--- NOTE | 2016-09-12 11:07 | NUR ---
GAVE TYLENOL FOR PAIN. PT IN DIALYSIS.
--- NOTE | 2016-09-12 12:55 | NUR ---
DR. GARDNER SPOKE WITH PATIENT. PT WAS SITTING IN CHAIR PUTTING ON HIS PANTS. SAYING "I AM GOING HOME." HE HAD PULLED OUT HIS IV. DR. ANNA REORIENTED AND NOTIFIED THAT HE WAS NOT READY TO GO HOME. THAT WE ARE STILL TREATING HIM. DR. WAGGONER DISCONTINUED ISOLATION PRECAUTIONS.
--- NOTE | 2016-09-12 13:35 | NUR ---
HD TX GIVEN TODAY. 3.5HRS. 1L TAKEN OFF. DECREASED UF GOAL B/P DROPPED TO 106/43. PT CONTINUES TO COMPLAIN OF LEG PAIN THROUGH OUT TX. AT BEDSIDE. FINAL B/P 158/53.
--- NOTE | 2016-09-12 14:26 | NUR ---
PT SCREAMING IT HURTS. AND SHE IS ASKING FOR HER MANOHAR. PT REPOSITIONED. FOOD OFFERED. PT STATED TO BE HUNGRY BUT WHEN TRAY WAS SET UP SHE STARTED SCREAMING AGAIN AND PUSHING AGAINST THE TRAY. ATIVAN WAS GIVEN FOR ANXIETY. ROCEPHIN IS INFUSING. NS INFUSING KVO. PT HAS CALMED DOWN. RESTING QUIETLY.
--- NOTE | 2016-09-12 15:11 | NUR ---
* Is the patient Alert and Oriented? No 0 * How many steps to enter\exit or inside your home? 4 0 * PCP Dr. CINTHYA Reese 0 * Pharmacy [facility] in [place] 0 * Preadmission Environment Home with Family 0 * ADLs Partial Dependent 0 * Partial ADLs (Assistance needed) Ambulation Bathing Dressing Medication Management 0 * Equipment Bedside Commode Cane Rolling Walker Wheelchair 0 * List name and contact numbers for known caregivers / representatives who currently or will assist patient after discharge: Spouse - Cash [phone] 0 * Community resources currently utilized Other 0 * Please name any agencies selected above. [facility] 0 * Additional services required to return to the preadmission environment? Yes 0 * Can the patient safely return to the preadmission environment? Yes 0 * Has this patient been hospitalized within the prior 30 days at any hospital? Yes Patient Name: DANIELLA COFFEY Admission Status: Elective Accout number: [id number] Admission Date: 09-10-2016 : 1935 Admission Diagnosis: Attending: NICOLLE Current LOS: 2 Primary Insurance: MEDICARE A & B Discharge Planning Comments: Patient alert but confused and unable to answer questions. Spouse not present and not answering telephone. Spoke with daughter, Camryn, via telephone. Camryn lives in [place], [place]. She reports patient was recently discharged from Assisted here at [facility]. She was only home a few days before returning to the hospital. She states they would like to go to a SNF at discharge, preferably [facility] in [place]. She has had home mignon services in the past with [facility]. She primarily uses a walker & WC but also has a cane & BSC. She goes to [facility]. CM will follow & assist as needed. Appliance Worker: Stefany Suh
--- NOTE | 2016-09-12 15:32 | NUR ---
PT SCREAMING HELP ME. MAKE IT STOP. PULLED UP IN BED AND REPOSITIONED. TURNED TO RIGHT SIDE WITH PILLOW UNDER HER BACK.
--- NOTE | 2016-09-12 15:38 | NUR ---
PAGED DR. HARTLEY TO SEE IF HE CAN ORDER ANYTHING ELSE FOR PAIN.
--- NOTE | 2016-09-12 17:27 | NUR ---
PT WAS SCREAMING ABOUT BEING IN PAIN AGAIN. PULLED UP IN BED AND REPOSITIONED. SET UP DINNER TRAY AND ASSISTED WITH MEAL. PT REMEAINED CALM WHILE EATING. ATE ROLL CAKE, SEVERAL BITES OF PORK CHOP, RICE AND BROCCOLI. AFTER MEAL PT STARTED YELLING AGAIN ABOUT PAIN. PILLOW PLACED UNDER LEGS FOR COMFORT. CALL LIGHT IN REACH.
--- NOTE | 2016-09-12 19:15 | NUR ---
SHIFT ASSESSMENT COMPLETE. PT IS AWAKE AND ALERT TO TIME AND PERSON. SHE DID NOT REMEMBER THAT SHE HAD DIALYSIS TODAY OR WHERE SHE WAS. SHE REORIENTS EASILY. PUPILS 3MM, PERRLA, BRISK REACTION TO LIGHT. NC @ 5 L/MIN. DENTURES IN MOUTH. HEARING AIDS BILAT. BRUISING NOTED ON HER R SHOULDER AND BILAT ARMS. SKIN TEAR ON L ARM. FISTULA IN L UPPER ARM. DRESSING CDI. S1S2 AUDIBLE, HR 80, NS VIA TELEMETRY. RR REGULAR, CLEAR BREATH SOUNDS BILAT THROUGHOUT ALL LOBES. SCAR NOTED ON ABD. BS ACTIVE IN ALL FOUR QUADS. R RADIAL PULSE PALP. L BRACH PULSE PALP, PEDAL PULSES PALP +2. PT COMPLAINS OF BACK PAIN AND LEG CRAMPS RATING A 7/10. REPOSITIONED FOR COMFORT. PRN PAIN MEDS ADMINISTERED. PT STATES THAT SHE DOES NOT WANT HER GOWN ON AND THAT SHE USUALLY SLEEPS NAKED. TOOK OFF GOWN PER REQUEST. CALL LIGHT IN REACH. BLANKETS AND SHEETS PULLED UP FOR COMFORT. VSS. WILL CONTINUE WITH POC.
--- NOTE | 2016-09-12 21:30 | NUR ---
PT REQUESTING FOR ME TO CALL HER . SHE STATES THAT SHE IS SCARED THAT HE IS GOING TO FORGET HER UP HERE. I INFORMED HER THAT I WOULD CALL HIM AND LET HER KNOW WHAT HE SAYS. SHE STATES THAT SHE IS HAPPY WITH THAT. CALL LIGHT IN REACH. BED IN LOWEST POSITION. REPOSITIONED FOR COMFORT. WILL CONTINUE TO MONITOR.
--- NOTE | 2016-09-12 23:00 | NUR ---
REASSESSMENT COMPLETE. PT IS THRASHING AROUND IN THE BED SCREAMING THAT HER LEGS ARE CRAMPING. SHE TOLD ME TO SQUEEZE HER LEGS OR SHE IS GOING TO PASS OUT. I COULD FEEL HER MUSCLES CRAMP UP. LEGS MASSAGED FOR 30 MINUTES, ADMINISTERED PRN PAIN MEDICATION, REPOSITIONED FOR COMFORT. PT IS VERY CONFUSED AT THIS TIME. SHE STATES THAT HER IS GOING TO COME PICK HER UP NOW AND THAT SHE IS NOT IN THE HOSPITAL. I TRIED TO REORIENT HER. NEW PHONE IN HER ROOM. WE CALLED HER MANOHAR SO HE COULD TRY TO TALK TO HER. PT IS STILL SET ON THE FACT THAT HER IS GOING TO COME GET HER. WILL CONT TO TRY TO REORIENT. CALL LIGHT IN REACH. BED IN LOWEST POSITION. PT REPOSITIONED FOR COMFORT. WILL CONTINUE TO MONITOR.
[2016-09-13] VITALS (23 sets, daily range): BP systolic 40–182; BP diastolic 38–103
--- NOTE | 2016-09-13 01:00 | NUR ---
RUBBING PT'S HEAD TO HELP SOOTH HER. SHE STATES THAT SHE IS IN A LOT OF PAIN AT THE MOMENT. REPOSITIONED FOR COMFORT. COLD WASH CLOTHS APPLIED TO LEGS PER PT REQUEST. PT DRIFTING OFF TO SLEEP. CONTINUED TO RUB HEAD UNTIL PT FELL ASLEEP. CALL LIGHT IN REACH. WILL CONTINUE TO MONITOR.
--- NOTE | 2016-09-13 03:00 | NUR ---
REASSESSMENT COMPLETE. REPOSITIONED FOR COMFORT. PILLOWS UNDERNEATH LEGS AND BOTH ARMS. PT STATES THAT SHE IS VERY COMFORTABLE AND THAT SHE WANTS TO GO TO SLEEP NOW. S1S2 AUDIBLE, NORMAL SINUS RHYTHM. RR REGULAR, CLEAR LUNG SOUNDS THROUGH ALL LOBES. BOWEL SOUNDS ACTIVE X4. COVERS PULLED UP FOR COMFORT. LIGHT OUT. CALL LIGHT IN REACH. BED IN LOWEST POSITION. WILL CONTINUE TO MONITOR.
--- NOTE | 2016-09-13 05:15 | NUR ---
PT RESTING PEACEFULLY AT THIS TIME. NO SIGNS OF DISTRESS NOTED. VSS. WILL CONT TO MONITOR.
[2016-09-13 05:35] LABS: BASOPHILS 0.4 % (0-2); EOSINOPHILS 2.7 % (0-7); HEMATOCRIT 29.5 % (36.0-48.0); HEMOGLOBIN 9.2 g/dL (12-16); IMMATURE GRANULOCYTES 1.4 % (0-5); LYMPHOCYTES 23.4 % (15-50); MCH 31.2 pg (26.0-34.0); MCHC 31.2 g/dL (31.0-37.0); MEAN PLATELET VOLUME 10.6 fL (7.4-10.4); MONOCYTES 9.9 % (2-11); NEUTROPHILS 62.2 % (40-80); PLATELET COUNT 232 10x3/uL (130-400); RBC 2.95 10x6/uL (4.00-5.40); RDW 13.5 % (11.5-14.5); WBC 7.6 10x3/uL (4.8-10.8)
[2016-09-13 05:48] LABS: ANION GAP 12.6 mmol/L (8-16); CALCIUM 7.6 mg/dL (8.5-10.1); CARBON DIOXIDE 30.8 mmol/L (21.0-32.0)
[2016-09-13 05:53] LABS: POTASSIUM - SERUM 3.4 mmol/L (3.5-5.1)
--- NOTE | 2016-09-13 06:26 | NUR ---
PT THRASHING AROUND IN BED SCREAMING THAT HER LEGS ARE HURTING. PT PULLED OUT IV. AKANKSHA BADILLO RN, STARTED A NEW 22G, PERIPHERAL IN R HAND. SALINE LOCKED. ONE ATTEMPT. ADMINISTERED PRN PAIN MEDS. REPOSITIONED FOR COMFORT. WILL CONTINUE WITH POC.
--- NOTE | 2016-09-13 10:56 | NUR ---
PT YELLING AND MOVING LEGS AROUND IN BED. RAISED HEAD OF BEB PER PATIENT REQUEST. SHE CALMED DOWN ONCE I TALKED TO HER. OFFERED SOME APPLE JUICE.
--- NOTE | 2016-09-13 13:30 | NUR ---
PT SLEEPING. LEGS ELEVATED ON A PILLOW.
--- NOTE | 2016-09-13 13:45 | NUR ---
PT YELLING "I HURT, I HURT." MOVING LEGS RESTLESSLY. REPOSITIONED FOR COMFORT. TYLENOL GIVEN PER ORDERS.
--- NOTE | 2016-09-13 13:57 | NUR ---
PT CONTINUES TO SCREAM. DEMANDING PAIN MEDICINE. EXPLAINED THAT I HAD JUST GIVEN HER TYLENOL AND THAT IT WOULD TAKE TIME TO WORK. SHE CALMED DOWN AND STOPPED YELLING.
--- NOTE | 2016-09-13 14:25 | NUR ---
PT YELLING AGAIN. HAD SCOOTED DOWN. PULLED UP AND REPOSITIONED. SIPS OF WATER GIVEN. PT CALMED DOWN AND RESTING NOW.
--- NOTE | 2016-09-13 14:46 | NUR ---
PT COMPLAINING OF PAIN IN LEGS. PLEXERIL 5MG GIVEN.
--- NOTE | 2016-09-13 15:06 | NUR ---
IN ROOM. UPDATE GIVEN. PT HAS REFUSED TO EAT BREAKFAST AND LUNCH. HAD A FEW SIPS OF COFFEE BUT DID NOT WANT THE REST OF FOOD. AT LUNCH REFUSED ANY FOOD. TOOK SIPS OF WATER BUT NO FOOD.
--- NOTE | 2016-09-13 16:31 | NUR ---
PT YELLING FOR PAIN MEDICINE. MOVING LEGS IN BED RESTLESSLY. GAVE IBUPROPHEN PER ORDERS FOR DISCOMFORT.
--- NOTE | 2016-09-13 17:06 | NUR ---
TRYING TO FEED PT. BEGAN MOVING LEGS AND SAYING "IT HURTS IT HURTS." SHE STATED THAT SHE HAD SPASMS IN HER LEGS. TURNED ON HER RIGHT SIDE THEN ON HER LEFT SIDE. SCREAMING NOT LISTENING TO INSTRUCTION. HAD JUST GIVEN HER SOME IBUPROPHEN. GAVE ATIVAN TO HELP HER CALM DOWN.
--- NOTE | 2016-09-13 17:13 | NUR ---
PT CALMED DOWN. PULLED UP IN BED. LEGS PROPPED UP ON 2 PILLOWS. CONTINUING TO EAT DINNER. STATES THAT SHE FEELS MORE COMFORTABLE.
--- NOTE | 2016-09-13 18:05 | NUR ---
PT SLEEPING. IN ROOM.
--- NOTE | 2016-09-13 19:20 | NUR ---
Assessment complete. See flowsheet. Pt screaming in pain and rates pain 6/10 to legs. Buprenex 0.1mg IVP administered. Pt pulled up in bed and positioned to left side for comfort. Call light and bedside table within reach. CPOC.
--- NOTE | 2016-09-13 21:20 | NUR ---
Pt resting with VSS and awakend for PM medication administration. Pain denied. Call light and bedside table remain within reach. CPOC.
--- NOTE | 2016-09-13 23:20 | NUR ---
Reassessment complete. See flowsheet. Pt awakens to verbal stimulation. Pain denied. VSS. Respirations unlabored. Pt repositioned to right side. HOB @ 30 degrees with NC secure to nares @ 2L FiO2. HR SR. Lung sounds CTA with diminished lower lobes. BS +. Linens remain clean/dry. Arms and heels rebridged after repositioning. Call light and bedside table remain within reach. CPOC.
[2016-09-14] VITALS (26 sets, daily range): BP systolic 95–155; BP diastolic 33–99
--- NOTE | 2016-09-14 00:18 | NUR ---
Large soft brown BM to bedpan x2 Pericare completed. Pt self-positioned for comfort.
--- NOTE | 2016-09-14 01:07 | NUR ---
Pt awake and screaming in pain. Pt pulled up and repositioned with HOB @ 30 degrees. Arms and heels bridged. Buprenex 0.1mg IVP administered for leg pain rated 7 out of 10. See APR. Pt provided fresh clear soda per request and helped with sips.
--- NOTE | 2016-09-14 01:40 | NUR ---
Pt resting quietly with VSS/no s/s pain or distress.
--- NOTE | 2016-09-14 03:30 | NUR ---
Reassessment complete. See flowsheet. Pt resting quietly with VSS. No s/s pain or distress. Pt awakened for full reassessment. No neuro changes to note. O2 @ 2L NC. Respirations shallow/unlabored. Lung sounds clear to all singleton with diminished lower lobes. HR SR with S1S2 auscultated. PIV remains CDI; saline locked with no s/s infection. BS +. Fistula site to left upper arm unchanged. Pt repositioned to back with HOB @ 30 degrees. Arms and heels bridged. Pt helped with sips of Sprite and remains cooperative. Linens clean/dry.
[2016-09-14 04:33] LABS: BASOPHILS 0.4 % (0-2); EOSINOPHILS 3.8 % (0-7); HEMOGLOBIN 9.7 g/dL (12-16); IMMATURE GRANULOCYTES 1.6 % (0-5); LYMPHOCYTES 21.2 % (15-50); MCH 31.3 pg (26.0-34.0); MCHC 31.3 g/dL (31.0-37.0); MEAN PLATELET VOLUME 10.3 fL (7.4-10.4); MONOCYTES 8.8 % (2-11); NEUTROPHILS 64.2 % (40-80); PLATELET COUNT 251 10x3/uL (130-400); RDW 13.7 % (11.5-14.5)
[2016-09-14 04:34] LABS: WBC 9.8 10x3/uL (4.8-10.8)
[2016-09-14 04:46] LABS: INR 1.23 (0.85-1.17); PROTIME 15.4 SECONDS (11.6-15.0)
[2016-09-14 04:54] LABS: CALCIUM 7.5 mg/dL (8.5-10.1); CARBON DIOXIDE 28.1 mmol/L (21.0-32.0)
[2016-09-14 04:56] LABS: CREATININE - SERUM 5.8 mg/dL (0.6-1.3); POTASSIUM - SERUM 4.1 mmol/L (3.5-5.1)
--- NOTE | 2016-09-14 05:30 | NUR ---
Resting with no s/s pain or distress. VSS. Call light and bedside table remain within reach. Pt allowed to continue resting. CPOC.
--- NOTE | 2016-09-14 07:15 | NUR ---
REC'D REPORT AND RESUMED CARE, SLEEPING, YELLED AND USED TACTILE STIMULI TO AWAKEN, [place], GARBLED SPEECH, CONFUSED, VSS, O2 VIA NC AT 2L, SAT 98%, ASSESSMENT COMPLETED PER FLOWSHEET
--- NOTE | 2016-09-14 09:00 | NUR ---
NO VISITORS AT THIS TIME, RESTING WITH NO SIGNS OF DISTRESS, AM MEDS GIVEN WITHOUT DIFFICULTY, NO VISITORS AT THIS TIME
--- NOTE | 2016-09-14 09:50 | NUR ---
SPOUSE AT BEDSIDE, PATIENT YELLING AND HOLDING LEG, BUPERNIX 0.1 MG GIVEN PER ORDER
--- NOTE | 2016-09-14 11:00 | NUR ---
ASSESSMENT COMPLETE NO ACUTE CHANGE FROM PREVIOUS
--- NOTE | 2016-09-14 12:00 | NUR ---
SPOUSE AT BEDSIDE, STATUS UPDATED, VOICES NO NEEDS AT THIS TIME
--- NOTE | 2016-09-14 12:40 | NUR ---
HD BEGAN, SLEEPING VSS, WILL CONTINUE WITH POC
--- NOTE | 2016-09-14 13:11 | NUR ---
Nutrition follow-up: Diet: Renal PO intake remains poor at this time Labs reviewed Wt: 105# RDN ordered Nepro with meals RDN following.
--- NOTE | 2016-09-14 21:00 | NUR ---
No visitors at this time, patient repositioned for comfort. No further needs at this time, all VSS and will continue to monitor.
--- NOTE | 2016-09-14 22:47 | NUR ---
Received patient resting in bed with eyes closed, assessment completed per flowsheet. Patient disoriented to x3 to place/time/situation, calls out for "momma". Eyes PERRLA @ 3mm with brisk response, sclera is reddened. S1/S2 noted Sinu Tach on telemetry with HR 105, rhythmic and regular. Breathing is even and unlabored on 2L via NC with O2 sat 93%, Lung sounds clear bilateral upper and mid with diminished lower. Abdomen is round and soft with bowel sounds active x4, non-tender. Patient is ESRD and anuric. Full ROM all extremities with weakness noted, all pulses palpable with cap refill < 3 sec. 20g PIV noted R hand, NS @ 10ml/hr infusing. Repositioned for comfort, no further needs at this time, all VSS and will continue to monitor.
--- NOTE | 2016-09-14 23:00 | NUR ---
Reassessment completed per flowsheet, patient resting in bed with eyes closed. Patient disoriented to time/place/situation, calm and cooperative. S1/S2 noted NSR on telemetry with HR 76, rhythmic and regular. Breathing is even and unlabored on 2L via NC, O2 sat 98%. Upper pulses palpable with lower extremities weakly palpable. Repostitioned for comfort, no further needs at this time. All VSS and will continue to monitor.
--- NOTE | 2016-09-14 23:25 | NUR ---
Patient pulled out IV, resited to R AC. Patent with dressing CDI.
[2016-09-15] VITALS (24 sets, daily range): BP systolic 107–166; BP diastolic 44–100
--- NOTE | 2016-09-15 01:00 | NUR ---
Patient laying in bed with eyes open, calm and cooperative. C/O chronic pain in legs, will provide PRN medication when available. No further needs at this time, will continue to monitor.
--- NOTE | 2016-09-15 01:35 | NUR ---
Patient removed IV again, will attempt to resite.
--- NOTE | 2016-09-15 03:00 | NUR ---
Reassessment completed per flowsheet, patient resting in bed with eyes open. Patient disoriented to time/place/situation. S1/S2 noted NSR on telemetry with HR 70, rhythmic and regular. Breathing is even and unlabored on 2L via NC, O2 sat 94%. All pulses palpable with cap refill < 3 sec. Repositioned for comfort, denies pain or other needs at this time. All VSS and will continue to monitor.
[2016-09-15 04:48] LABS: BASOPHILS 0.2 % (0-2); EOSINOPHILS 4.6 % (0-7); HEMATOCRIT 29.5 % (36.0-48.0); HEMOGLOBIN 9.3 g/dL (12-16); IMMATURE GRANULOCYTES 0.9 % (0-5); LYMPHOCYTES 16.2 % (15-50); MCH 31.6 pg (26.0-34.0); MCHC 31.5 g/dL (31.0-37.0); MCV 100.3 fL (80.0-100.0); MEAN PLATELET VOLUME 10.5 fL (7.4-10.4); MONOCYTES 7.3 % (2-11); NEUTROPHILS 70.8 % (40-80); PLATELET COUNT 230 10x3/uL (130-400); RBC 2.94 10x6/uL (4.00-5.40); RDW 13.8 % (11.5-14.5); WBC 9.1 10x3/uL (4.8-10.8)
[2016-09-15 04:52] LABS: ANION GAP 12.6 mmol/L (8-16); CALCIUM 7.8 mg/dL (8.5-10.1); CARBON DIOXIDE 32.3 mmol/L (21.0-32.0); CREATININE - SERUM 4.6 mg/dL (0.6-1.3); POTASSIUM - SERUM 3.9 mmol/L (3.5-5.1)
--- NOTE | 2016-09-15 05:00 | NUR ---
AM labs collected without difficulty, patient resting in bed with eyes closed. Denies pain or other needs at this time, all VSS and will continue to monitor.
--- NOTE | 2016-09-15 07:00 | NUR ---
REC'D REPORT AND RESUMED CARE, SLEEPING AROUSABLE TO VERBAL STIMULI, CONFUSED, ASSESSMENT COMPLETE PER FLOWSHEET, VSS, O2 VIA NC AT 2L, C/O OF PAIN TO TOUCH OF RIGHT LOWER LEG, REPOSITIONED TO LEFT SIDE AND PROPPED WITH PILLOW
--- NOTE | 2016-09-15 08:00 | NUR ---
BREAKFAST TRAY TO BEDSIDE, ASSIST WITH SET UP AND EATING, BITES AND SIPS ONLY
--- NOTE | 2016-09-15 09:00 | NUR ---
SPOUSE AT BEDSIDE, STATUS UPDATED, AWAITING TO SPEAK WITH CASE MANAGEMENT RE: [facility]AC[facility]
--- NOTE | 2016-09-15 11:00 | NUR ---
YELLING SCREAMING, LEG HURTS, HOLDING LEG AND RUBBING HIP, BUPERNEX 0.1 MG AND FLEXERIL 5 MG GIVEN PER MAR FLOWSHEET, NO OTHER ACUTE CHANGE FROM PREVIOUS ASSESSMENT
--- NOTE | 2016-09-15 12:00 | NUR ---
LUNCH TRAY TO BEDSIDE, ASSIST WITH SET UP AND EATING, SPOUSE AT BEDSIDE, STATUUS UPDATED, VOICES NO NEEDS AT THIS TIME
--- NOTE | 2016-09-15 15:00 | NUR ---
ASSESSMENT COMPLETE SEE FLOWSHEET, VSS, WILL CONTINUE WITH POC
--- NOTE | 2016-09-15 16:30 | NUR ---
RIGHT HAND PIV PULLED OUT, RESTARTED NEW 20 G PIV PLACED TO HAND/WRIST AREA WITH ATTEMPT X1, AFFIXED WITH OPSITE DRESSING, TOLERATED WITHOUT DIFFICULTY
--- NOTE | 2016-09-15 18:10 | NUR ---
YELLING LEG IS HURTING, BUPERNEX 0.1 MG IVP GIVEN PER PRN MAR ORDER
--- NOTE | 2016-09-15 19:00 | NUR ---
REPORT REC'D. ASSUMED PATIENT CARE. ASSESSMENT COMPLETED. SEE FLOW SHEETS. PT LYING IN BED, CONFUSED TO PLACE, TIME AND SITUATION, REORIENTED. FOLLOW COMMANDS. SR ON CM WITH HR AT 98. LUNG SOUNDS CLEAR TO ULB WITH DIMINISHED TO LLB, UNLABORED ON 2L VIA NC. LEFT ARM FISTULA INTACT, CLEAN AND DRY. RT WRIST PIV INTACT INFUSING NS AT 5L/ HR VIA PUMP. PPP. CALL LIGHT AND BST IN REACH. WILL CONT TO MONITOR.
--- NOTE | 2016-09-15 21:00 | NUR ---
NO VISITORS AT THIS TIME. SCHEDULED MEDS GIVEN AT THIS TIME. PT GENARO WELL.
--- NOTE | 2016-09-15 21:20 | NUR ---
PT SCREEMING OUT LOUD MY LEGS HERTS, BUPRENEX 0.1MG GIVEN PER ORDER. REPOSITIONED FOR COMFORT. PILLOWS IN USE FOR SUPPORT.CALL LIGHT IN REACH. CPOC.
--- NOTE | 2016-09-15 23:00 | NUR ---
REASSESSMENT COMPLETED. SEE FLOW SHEETS FOR ALL FINDINGS. PT AROUSES EASILY WITH VOICES. NO ACUTE SIGNS OF DISTRESS NOTED AT THIS TIME. VSS. CPOC.
[2016-09-16] VITALS (25 sets, daily range): BP systolic 99–175; BP diastolic 36–103
--- NOTE | 2016-09-16 01:00 | NUR ---
PT RESTING QUIETLY WITHOUT DISTRESS. VSS. NO NEEDS VOICES. CALL LIGHT IN REACH. CPOC.
--- NOTE | 2016-09-16 03:00 | NUR ---
REASSESSMENT COMPLETED. SEE FLOW SHEETS FOR ALL FINDINGS. PT AWAKE YELLING OUT LOUD LEGS HURTING. PAIN MED GIVEN PER ORDER. REPOSITIONED FOR COMFORT. PILLOWS IN USE FOR SUPPORT. HOB UP. SIDE RAILS UP X2. CALL LIGHT IN REACH. CPOC.
--- NOTE | 2016-09-16 04:00 | NUR ---
I&O COMPLETED WITHOUT DIFFIC.
--- NOTE | 2016-09-16 05:00 | NUR ---
PT RESTING QUIELTY WITHOUT DIFFIC. VSS. CALL LIGHT IN REACH. CPOC
--- NOTE | 2016-09-16 06:00 | NUR ---
NO VISITORS AT THIS TIME. VSS. CPOC
--- NOTE | 2016-09-16 09:00 | NUR ---
RESTING. NO DISTRESS NOTED.
[2016-09-16 09:07] LABS: CALCIUM 8.3 mg/dL (8.5-10.1); CARBON DIOXIDE 27.7 mmol/L (21.0-32.0); POTASSIUM - SERUM 3.7 mmol/L (3.5-5.1)
[2016-09-16 09:15] LABS: CREATININE - SERUM 6.6 mg/dL (0.6-1.3)
--- NOTE | 2016-09-16 09:45 | NUR ---
Nutrition follow-up: Diet: Renal Pt continues with very poor po intake due to agitation, confusion Labs reviewed Recommend PEG tube placement vs NGT placement and TF Nepro started @ 25 ml/hr with increase to goal rate of 40 ml/hr if medically feasible. RDN following.
[2016-09-16 10:02] LABS: BASOPHILS 0.1 % (0-2); EOSINOPHILS 4.4 % (0-7); HEMOGLOBIN 9.4 g/dL (12-16); IMMATURE GRANULOCYTES 0.9 % (0-5); LYMPHOCYTES 17.9 % (15-50); MCH 30.9 pg (26.0-34.0); MCHC 31.3 g/dL (31.0-37.0); MCV 98.7 fL (80.0-100.0); MEAN PLATELET VOLUME 10.3 fL (7.4-10.4); MONOCYTES 7.1 % (2-11); NEUTROPHILS 69.6 % (40-80); PLATELET COUNT 267 10x3/uL (130-400); RBC 3.04 10x6/uL (4.00-5.40); WBC 12.6 10x3/uL (4.8-10.8)
--- NOTE | 2016-09-16 11:00 | NUR ---
TOLERATED HD. NO DISTRESS NOTED.
--- NOTE | 2016-09-16 13:00 | NUR ---
RESTING WITH EYES CLOSED. NO DISTRESS NOTED.
--- NOTE | 2016-09-16 15:00 | NUR ---
AT BEDSIDE. CONDITION UPDATE GIVEN AND QUESTIONS ANSWERED.
--- NOTE | 2016-09-16 17:00 | NUR ---
DENIES HEADACHE AFTER TYLENOL.
--- NOTE | 2016-09-16 19:00 | NUR ---
REPORT RECIEVED, INITIAL ASSESSMENT COMPLETE, PLEASE SEE FLOW SHEETS FOR DETAILS. ORIENTED TO SELF ONLY. VERY [place]. DENIES PAIN/NEEDS ATT. BED LOW AND LOCKED, CALL LIGHT IN REACH. VSS ATT, WILL CPOC.
--- NOTE | 2016-09-16 20:27 | NUR ---
D/C'D PIV FROM RIGHT WRIST, IT HAD INFILTRATED AND THIS WAS NOTIVED POST KERLIX WRAP BEING REMOVED AND FLUSHING LINE. WILL RESITE.
--- NOTE | 2016-09-16 21:00 | NUR ---
ASKED FOR BEDPAN, THIS WAS PROVIDED. 100ML VERY CONCENTRATED/CLOUDY/WITH ODOR URINE OUT. DENIES ANY OTHER NEEDS ATT. BED LOW AND LOCKED, CALL LIGHT IN REACH. VSS, WILL CPOC.
--- NOTE | 2016-09-16 22:10 | NUR ---
PATIENT AGGITATED, AND ANXIOUS, YELLING OUT AND THROWING OFF BLANKETS. KEEPS YELLING FOR ME TO CALL HER . INFORMED HER THAT HER HAD RELAYED TO THE PREVIOUS SHIFT'S NURSE THAT HE WOULD BE BACK IN THE MORNING. SHE IS HARD OF HEARING, SO SHE DOES NOT INDICATE THAT SHE UNDERSTANDS AND STARTS TO YELL MORE. TO NOT ESCELATE HER, I REMOVED MYSELF FROM THE ROOM AND THEN GOT READY TO ADMINISTER ATIVAN ORDERED SO THAT SHE MIGHT GET A GOOD NIGHTS REST.
--- NOTE | 2016-09-16 23:00 | NUR ---
REASSESSMENT COMPLETE, PLEASE SEE FLOW SHEETS FOR DETAILS. DENIES PAIN/NEEDS ATT. BED LOW AND LOCKED, CALL LIGHT IN REACH. VSS, WILL CPOC.
[2016-09-17] VITALS (18 sets, daily range): BP systolic 117–197; BP diastolic 43–112
--- NOTE | 2016-09-17 01:00 | NUR ---
CONTINUES TO BE RESTLESS THOUGH HAS STOPPED YELLING OUT AND BEING DISRUPTIVE. CONTINUALLY WANTS SIPS OF WATER THAT HAVE BEE PROVIDED. CONTINUES TO PUSH BLACKETS OFF AND TO TRY TO TAKE OFF GOWN. VERY CONFUSED, TALKING ABOUT HALDING A BABY IN HER LAP. INFORMED HER THERE WAS NO BABIES HERE AND SHE CONTINUED ABOUT THE BABY. INFORMED HER I WOULD BE BACK TO CHECK ON HER AGAIN SOON. VSS ATT, BED LOW AND LOCKED, CALL LIGHT IN REACH. WILL CPOC.
--- NOTE | 2016-09-17 03:00 | NUR ---
REASSESSMENT COMPELTE, PLEASE SEE FLOW SHEETS FOR DETAILS. PT CONFUSED AND ANXIOUS. HAS PERIODS OF REST AND RESTLESSNESS. DENIES ANY PAIN, ASKED FOR WATER, THIS WAS PROVIDED. VSS ATT, BED LOW AND LOCKED, CALL LIGHT IN REACH. WILL CPOC.
[2016-09-17 04:45] LABS: BASOPHILS 0.3 % (0-2); EOSINOPHILS 4.9 % (0-7); HEMATOCRIT 30.1 % (36.0-48.0); HEMOGLOBIN 9.4 g/dL (12-16); IMMATURE GRANULOCYTES 0.6 % (0-5); LYMPHOCYTES 18.4 % (15-50); MCH 31.3 pg (26.0-34.0); MCHC 31.2 g/dL (31.0-37.0); MCV 100.3 fL (80.0-100.0); MEAN PLATELET VOLUME 10.2 fL (7.4-10.4); MONOCYTES 9.7 % (2-11); NEUTROPHILS 66.1 % (40-80); PLATELET COUNT 258 10x3/uL (130-400); RDW 14.4 % (11.5-14.5); WBC 9.8 10x3/uL (4.8-10.8)
[2016-09-17 04:52] LABS: ANION GAP 8.5 mmol/L (8-16); CALCIUM 8.2 mg/dL (8.5-10.1); CARBON DIOXIDE 31.7 mmol/L (21.0-32.0); POTASSIUM - SERUM 3.2 mmol/L (3.5-5.1)
[2016-09-17 04:54] LABS: CREATININE - SERUM 4.2 mg/dL (0.6-1.3)
--- NOTE | 2016-09-17 05:00 | NUR ---
RESTING ATT. VSS. BED LOW AND LOCKED. NO S&S OF ACUTE DISTRESS NOTED. CALL LIGHT IN REACH. WILL CPOC.
--- NOTE | 2016-09-17 07:58 | NUR ---
SHIFT ASSESSMENT COMPLETE. PATIENT IS HARD OF HEARING, BUT FOLLOWS COMMANDS WHEN SHE IS ABLE TO HEAR YOU. PATIENT IS WANTING TO GO HOME AND ASKING FOR HER .
--- NOTE | 2016-09-17 08:37 | NUR ---
PATIENT CONSUMED 1/4 OF GLUCERNA, A COUPLE BITES OF EGGS, AND H2O THEN REFUSED ANYMORE. WILL OFFER AGAIN LATER. CALL LIGHT WITHIN REACH AND BED IN LOW POSITION.
--- NOTE | 2016-09-17 09:25 | NUR ---
WERO FRANCO, HERE IN TO SEE PATIENT.
--- NOTE | 2016-09-17 10:02 | NUR ---
SPOKE WITH JOAN CONTEH AND LET HER KNOW PATIENT'S IS IN WAITING ROOM.
--- NOTE | 2016-09-17 10:11 | NUR ---
JOAN CONTEH IS HERE TO SPEAK WITH MR. MANOHAR COFFEY ABOUT PUTTING PATIENT ON HOSPICE.
--- NOTE | 2016-09-17 10:17 | NUR ---
IS VERY UPSET AND WANTS TO CALL HIS DAUGHTER IN [place] BEFORE MAKING A DECISION ABOUT HOSPICE.
--- NOTE | 2016-09-17 11:36 | NUR ---
AT BEDSIDE. PATIENT SLEEPING ON AND OFF. YELLING AT OR ANYONE IN ROOM WHEN SHE IS AWAKE. CALL LIGHT WITHIN REACH.
--- NOTE | 2016-09-17 13:00 | NUR ---
FEEDING PATIENT HER LUNCH WITHOUT ANY ISSUES. PATIENT IS VERY THANKFUL FOR SUCH A GOOD MEAL. PATIENT CONSUMED 75% OF MEAL WITHOUT ISSUE. AT BEDSIDE. CALL LIGHT WITHIN REACH, BED IN LOW POSITION.
--- NOTE | 2016-09-17 15:00 | NUR ---
PATIENT YELLING OUT, REPOSITIONED FOR COMFORT. CALL LIGHT WITHIN REACH, BED IN LOW POSITION. MARTÍNEZ HERE TO HELP WITH PLACEMENT SETUP FOR ALF.
--- NOTE | 2016-09-17 16:41 | NUR ---
PATIENT MOANING OUT WANTING SOMEONE TO HELP HER.WHEN ASK WHAT WAS WRONG PATIENT WAS UNABLE TO EXPLAIN WHAT WAS BOTHERING HER. REPOSITIONED PATIENT IN BED FOR COMFORT. CALL LIGHT WITHIN REACH, BED IN LOW POSITION.
--- NOTE | 2016-09-17 17:02 | NUR ---
LATE ENTRY 1520 CM NOTIFIED THAT WANTED TO DISCUSS REFERRAL TO SKILLED FACILITY. CM MET WITH AT THE BEDSIDE. HE HAS BEEN STAYING WITH HIS SINCE 0900 THIS EARLY AM. HE WOULD LIKE A REFERRAL SENT TO [facility]. CM EXPLAINED I WOULD SEND REFERRAL THEY WOULD REVIEW THE INFORMATION ON MONDAY. HE UNDERSTOOD. HE LOOKS EXHAUSTED BUT IS WORRIED ABOUT HIS . HIS VOICED CONCERN ABOUT HIS HEALTH. CM SPOKE WITH THE CHARGE NURSE, FLORIAN. HE SPOKE WITH THE . IS GOING HOME TO REST TONIGHT. IN REVIEW OF DOCUMENTATION FOR [facility]. IVY NOTED THE PATIENT HAS NOT HAD A DOCUMENTED BOWEL MOVEMENT. CM ADVISE CHARGE NURSE. PATIENT WITH RECENT DISCHARGE FROM [facility]. MAY REQUIRE [facility] WHICH CAN BE INITATED MONDAY. [facility] NOT AVAILABLE ON WEEKENDS. TC TO [facility] AND [facility]. SPOKE WITH LUBNA. FAXED REFERRAL TO [phone]. DOCUMENTATION WILL BE REVIEWED ON MONDAY.
--- NOTE | 2016-09-17 18:05 | NUR ---
PATIENT STATES SHE NEEDS TO VOID. PLACED PT ON BED BOB. SHE VOIDED APPROX. 25ML OF CLOUDY YELLOW ODOROUS URINE. PATIENT REPOSITIONED IN BED. CALL LIGHT WITHIN REACH.
--- NOTE | 2016-09-17 19:00 | NUR ---
REPORT RECIEVED, INITIAL ASSESSMENT COMPLETE, PLEASE SEE FLOW SHEETS FOR DETAILS. DENIES PAIN/NEEDS ATT. VERY CONFUSED AND [place] ST[place]. COULD TELL ME HER NAME AND NOTHING ELSE. INSISTS SHE NEEDS TO GO HOME, INFORMED HER THAT SHE NEEDED TO STAY HERE BECAUSE SHE WAS SICK. VSS ATT, BED LOW AND LOCKED, CALL LIGHT IN REACH. WILL CPOC.
--- NOTE | 2016-09-17 21:00 | NUR ---
MOVED UP IN BED AND PROVIDED SIPS OF WATER. DENIES ANY OTHER PAIN/NEEDS ATT. VSS, BED LOW AND LOCKED, CALL LIGHT IN REACH. WILL CPOC.
--- NOTE | 2016-09-17 23:00 | NUR ---
REASSESSMENT COMPLETE, PLEASE SEE FLOW SHEETS FOR DETAILS. INCONTINENT OF STOOL AND URINE ATT. FULL BED BATH AND LINEN CHANGE PROVIDED. VSS ATT, BED LOW AND LOCKED, CALL LIGHT IN REACH. WILL CPOC.
[2016-09-18] VITALS (25 sets, daily range): BP systolic 100–208; BP diastolic 51–102
--- NOTE | 2016-09-18 01:00 | NUR ---
MOVING AROUND IN BED, YELLING OUT, RESTLESS. ASKS FOR WATER AND THIS IS PROVIDED. VSS ATT, BED LOW AND LOCKED, CALL LIGHT IN REACH. WILL CPOC.
--- NOTE | 2016-09-18 01:35 | NUR ---
UNIT 2 OF 3 FINISHED.
--- NOTE | 2016-09-18 01:40 | NUR ---
UNIT 3 OF 3 STARTED.
--- NOTE | 2016-09-18 03:00 | NUR ---
REASSESSMENT COMPLETE, PLEASE SEE FLOW SHEETS FOR DETAILS. PT RESTLESS AND BP ELEVATED. NO MEDS FOR INTERVENTION ORDERED, WILL CONTINUE TO MONITOR AND SEEK INTERVENTION IF NEEDED. BED LOW AND LOCKED, CALL LIGHT IN REACH. VSS, WILL CPOC.
[2016-09-18 04:38] LABS: BASOPHILS 0.2 % (0-2); EOSINOPHILS 3.6 % (0-7); HEMATOCRIT 30.9 % (36.0-48.0); HEMOGLOBIN 9.9 g/dL (12-16); IMMATURE GRANULOCYTES 1.1 % (0-5); LYMPHOCYTES 21.1 % (15-50); MCH 31.2 pg (26.0-34.0); MEAN PLATELET VOLUME 10.2 fL (7.4-10.4); MONOCYTES 9.3 % (2-11); NEUTROPHILS 64.7 % (40-80); PLATELET COUNT 287 10x3/uL (130-400); RBC 3.17 10x6/uL (4.00-5.40); RDW 14.4 % (11.5-14.5); WBC 10.3 10x3/uL (4.8-10.8)
[2016-09-18 04:39] LABS: MCV 97.5 fL (80.0-100.0)
[2016-09-18 04:42] LABS: ANION GAP 15.7 mmol/L (8-16)
[2016-09-18 04:43] LABS: CREATININE - SERUM 6.1 mg/dL (0.6-1.3); POTASSIUM - SERUM 3.7 mmol/L (3.5-5.1)
--- NOTE | 2016-09-18 05:04 | NUR ---
BP STILL ELEVATED, PAGING DR HARTLEY. ALL OTHER VSS, BED LOW AND LOCKED, CALL LIGHT IN REACH. DENIES PAIN/NEEDS ATT. WILL CPOC.
--- NOTE | 2016-09-18 05:14 | NUR ---
SPOKE WITH DR HARTLEY AND NEW ORDERS RECIEVED.
--- NOTE | 2016-09-18 06:46 | NUR ---
PATIENT WAS YELLING OUT THEM MOANING AND GROANING AND THEN SAID IT HURTS. COULD NOT TELL ME WHAT OR WHY BUT GAVE PAIN MEDS PER ORDERS.
[2016-09-18 09:37] LABS: APPEARANCE CLOUDY (CLEAR); BILIRUBIN NEGATIVE (NEGATIVE); COLOR YELLOW (YELLOW); GLUCOSE NEGATIVE (NEGATIVE); KETONE NEGATIVE (NEGATIVE); LEUKOCYTE ESTERASE 2+ (NEGATIVE); NITRITE NEGATIVE (NEGATIVE); PROTEIN 3+ mg/dL (NEGATIVE); UROBILINOGEN NORMAL (NORMAL)
[2016-09-18 09:38] LABS: WHITE CELLS - URINE >50 /hpf (0-5)
[2016-09-18 09:39] LABS: BACTERIA MANY /hpf (NONE SEEN); EPITHELIAL CELLS 0-5 /hpf (0-5)
--- NOTE | 2016-09-18 12:11 | NUR ---
0700- ASSESSMENT COMPLETE PER FLOW SHEET. VSS. NO NEEDS VOICED. 0815- JOAN CONTEH, HERE TO SEE PT. NOTIFIED OF FEVER AND HIGH SBP. NEW ORDERS REC'D. 0900- IN AND OUT CATH DONE, SPECIMEN LABELED AT BEDSIDE AND SENT TO LAB. 1100- REASSESSMENT COMPLETE PER FLOW SHEET. NO CHANGES NOTED.
--- NOTE | 2016-09-18 13:07 | NUR ---
RESTING QUIETLY IN BED. VSS. NO C/O AT THIS TIME. REPOSITIONED IN BED FOR COMFORT. CALL LIGHT WITHIN REACH.
--- NOTE | 2016-09-18 15:00 | NUR ---
REASSESSMENT COMPLETE PER FLOW SHEET. NO CHANGES NOTED.
--- NOTE | 2016-09-18 17:03 | NUR ---
DINNER TRAY SERVED. FAMILY AT BEDSIDE ASSISTING PT TO EAT.
--- NOTE | 2016-09-18 19:00 | NUR ---
REPORT RECIEVED, INITIAL ASSESSMENT COMPLETE, PLEASE SEE FLOW SHEETS FOR DETAILS. REPOSOTIONED FOR COMFORT, GAVE SIPS OF TEA. WILL NOT ANSWER ANY QUESTIONS AND DOES NOT APPEAR IN PAIN. TEMP 100.0, WILL MONITOR THIS CLOSELY. NATACHA FISTULA WITH BRUIT AND THRILL PRESENT, LEFT PERIPHERAL PULSE WEAK. PALPABLE RIGHT RADIAL AND WEAK PALPABLE PULSES IN LE. LUNGS DIMINISHED IN LOWE LOBES, BREATHS SHALLOW AND AT A RATE OF 15. BS ACTIVE X4. PT ANURIC, THOUGH HAD AN IN AND OUT CATH PER REPORT, UA AND CULTURES ORDERED. BED IS LOW AND LOCKED, CALL LIGHT IN REACH. VSS ATT, WILL CPOC.
--- NOTE | 2016-09-18 21:07 | NUR ---
MOVED UP AND TURNED TO RIGHT SIDE IN BED. BED IS LOW AND LOCKED, CALL LIGHT IN REACH. BP ELEVATED, GAVE HYDRALAZINE ONE HOUR AGO, WILL CONTINUE TO MONITOR. IS QUIET AND CONTENT. ASKING FOR HUGS. WILL CPOC.
--- NOTE | 2016-09-18 23:00 | NUR ---
REASSESSMENT COMPLETE, PLEASE SEE FLOW SHEETS FOR DETAILS. REPOSITIONED TO LEFT SIDE AND PULLED UP IN BED. GAVE SIPS OF WATER. GOWN AND ECG LEADS PULLED OFF, THESE WERE PUT BACK ON. VSS ATT, BED LOW AND LOCKED, CALL LIGHT IN REACH. WILL CPOC.
[2016-09-19] VITALS (23 sets, daily range): BP systolic 134–180; BP diastolic 43–95
--- NOTE | 2016-09-19 01:12 | NUR ---
REPOSITIONED TO RIGHT SIDE AND PULLED UP IN BED. VSS ATT, BED LOW AND LOCKED, CALL LIGHT IN REACH. WILL CPOC.
--- NOTE | 2016-09-19 03:00 | NUR ---
REASSESSMENT COMPLETE, PLEASE SEE FLOW SHEETS FOR DETAILS. REPOSITIONED TO LEFT SIDE AND MOVED UP IN BED. PROVIDED SIPS OF WATER. VSS ATT, BED LOW AND LOCKED, CALL LIGHT IN REACH. WILL CPOC.
[2016-09-19 04:38] LABS: BASOPHILS 0.3 % (0-2); EOSINOPHILS 3.3 % (0-7); HEMATOCRIT 33.5 % (36.0-48.0); HEMOGLOBIN 10.8 g/dL (12-16); IMMATURE GRANULOCYTES 1.4 % (0-5); LYMPHOCYTES 18.9 % (15-50); MCH 31.5 pg (26.0-34.0); MCHC 32.2 g/dL (31.0-37.0); MCV 97.7 fL (80.0-100.0); MEAN PLATELET VOLUME 10.3 fL (7.4-10.4); MONOCYTES 9.3 % (2-11); NEUTROPHILS 66.8 % (40-80); PLATELET COUNT 317 10x3/uL (130-400); RBC 3.43 10x6/uL (4.00-5.40); RDW 14.9 % (11.5-14.5); WBC 10.1 10x3/uL (4.8-10.8)
[2016-09-19 04:59] LABS: ANION GAP 20.1 mmol/L (8-16); CALCIUM 8.3 mg/dL (8.5-10.1); CARBON DIOXIDE 25.6 mmol/L (21.0-32.0); POTASSIUM - SERUM 3.7 mmol/L (3.5-5.1)
--- NOTE | 2016-09-19 05:00 | NUR ---
REPOSITIONED TO RIGHT SIDE AND MOVED UP IN BED. VSS ATT, BED LOW AND LOCKED, CALL LIGHT IN REACH. WILL CPOC.
[2016-09-19 05:02] LABS: CREATININE - SERUM 7.7 mg/dL (0.6-1.3)
--- NOTE | 2016-09-19 09:47 | NUR ---
Nutrition follow-up: Diet: Regular mechanical soft PO intake fair if pt is feed. Labs reviewed Wt: 105# RDN following.
--- NOTE | 2016-09-19 10:53 | NUR ---
DR HARTLEY HERE AND SPOKE TO FAMILY AT BS RE: POC.
--- NOTE | 2016-09-19 13:59 | NUR ---
Patient Name: DANIELLA COFFEY Admission Status: Elective Accout number: [id number] Admission Date: 09-10-2016 : 1935 Admission Diagnosis:BRADYCARDIA, UNSPECIFIED Attending: NICOLLE Current LOS: 9 Anticipated DC Date: 09-20-2016 Planned Disposition: Penitentiary Facility Primary Insurance: MEDICARE A & B Discharge Planning Comments: Phone call to Elisha with [facility] - she states they are evaluating patient for their facility. They have not made a determination at this time. YORDY signed by daughter for [facility]. DC IMM explained and signed as well. Answered questions. Anticipate transfer to floor this afternoon. Cafeteria Table Attendant: Stefany Suh
--- NOTE | 2016-09-19 18:39 | NUR ---
HD COMPLETE 2L TAKEN OFF DURING HD. PT GENARO WELL.
--- NOTE | 2016-09-19 19:20 | NUR ---
REC'D PT RESTING IN BED ON O2 @ 2 LITERS, AWAKENS TO VERBAL STIMULI, TRACKS BUT DOES NOT FOLLOW COMMANDS OR ANSWER QUESTIONS, RIGHT A/C PIV WITH NS @ 10CC/HR, ABD SOFT BS X 4, LEFT UPPER ARM FISTULA, PALPABLE THRILL AND AUDIBLE BRUIT, PT SCABS NOTED TO LEFT ARM AND BRUISES TO RIGHT ARM AND UPPER CHEST, PT MAEE, WILL MONITOR CLOSELY FOR CHANGES, SR UP X 2, CALL LIGHT IN REACH.
--- NOTE | 2016-09-19 21:15 | NUR ---
EVENING MEDS GIVEN, NO DIFFICULTY SWALLOWING NOTED, PARTIAL LINEN CHANGE PROVIDED AND PT REPOSITIONED UP IN BED FOR COMFORT, PT CUSSING AT STAFF WHILE MOVING, VSS, WILL CONT TO MONITOR FOR CHANGES.
--- NOTE | 2016-09-19 22:30 | NUR ---
PT PULLED MONITORING EQUIPMENT AND PIV OFF, PIV DC'D WITH CATH TIP INTACT, ATTEMPTED PIV'S X 2 AT THIS TIME WITHOUT SUCCESS, WILL ATTEMPT AT A LATER TIME IF NECESSARY.
[2016-09-20] VITALS (11 sets, daily range): BP systolic 106–172; BP diastolic 35–68
--- NOTE | 2016-09-20 02:40 | NUR ---
22 GAUGE RESITED TO RIGHT HAND X 1 ATTEMPT, NS RESUMED AT 10CC/HR, PT RESTING EYES CLOSED, O2 @ 2LITERS VIA NC, TOLERATED WELL
[2016-09-20 03:18] LABS: BASOPHILS 0.5 % (0-2); EOSINOPHILS 1.1 % (0-7); HEMATOCRIT 34.4 % (36.0-48.0); HEMOGLOBIN 10.9 g/dL (12-16); IMMATURE GRANULOCYTES 1.7 % (0-5); LYMPHOCYTES 18.2 % (15-50); MCH 31.4 pg (26.0-34.0); MCHC 31.7 g/dL (31.0-37.0); MCV 99.1 fL (80.0-100.0); MEAN PLATELET VOLUME 9.9 fL (7.4-10.4); MONOCYTES 12.5 % (2-11); PLATELET COUNT 312 10x3/uL (130-400); RBC 3.47 10x6/uL (4.00-5.40); RDW 15.6 % (11.5-14.5)
[2016-09-20 03:25] LABS: ANION GAP 14.7 mmol/L (8-16); CALCIUM 8.5 mg/dL (8.5-10.1); CARBON DIOXIDE 31.1 mmol/L (21.0-32.0); POTASSIUM - SERUM 3.8 mmol/L (3.5-5.1)
[2016-09-20 03:27] LABS: CREATININE - SERUM 4.5 mg/dL (0.6-1.3)
[2016-09-20 03:30] LABS: WBC 6.3 10x3/uL (4.8-10.8)
--- NOTE | 2016-09-20 11:44 | NUR ---
Rec'd call from Isabel with [facility], requesting additional clinical information. Records faxed. Waiting determination. If accepted, family states they can transport patient if van not available. CM will follow.
--- NOTE | 2016-09-20 12:01 | NUR ---
PT AWAKE AND ATE 80% OF HER BREAKFAST FOR FAMILY MEMBERS.
--- NOTE | 2016-09-20 13:02 | NUR ---
PT BATHED AND LINENS CHANGED.
--- NOTE | 2016-09-20 14:00 | NUR ---
RECEIVED PT TO ROOM 2106, VIA BED, ACCOMPANIED BY DAUGTHER AND . PT AND FAMILY ORIENTED TO ROOM AND CALL LIGHT. NAD NOTED, WILL CONTINUE PLAN OF CARE.
--- NOTE | 2016-09-20 15:33 | NUR ---
Spoke with Isabel @ [facility] - they need additional documentation regarding behavior before accepting patient. Will pass on to nursing. Anticipate dc tomorrow if accepted.
--- NOTE | 2016-09-20 19:30 | NUR ---
PT LYING IN BED, AWAKE, ALERT, CONFUSED. PT IS IN NO ACUTE DISTRESS. CONTINUE TO MONITOR CLOSELY. BED LOW, CALL LIGHT IN REACH, SIDE RAILS X 2, HOB 30 DEGREES. BED ALARM ON AND FUNCTIONING.
--- NOTE | 2016-09-20 20:05 | NUR ---
22 GAUGE LT WRIST PER [place] RN X 3 ATTEMPTS. PT IS A DIFFICULT STICK.
--- NOTE | 2016-09-20 23:35 | NUR ---
PT HAS YELLED OUT LOUDLY MOST OF THIS EVENING, UNABLE TO BE REORIENTED TO TIME, PLACE, AND SITUATION. CONTINUE TO MONITOR CLOSELY.
[2016-09-21] VITALS: BP 142/42
[2016-09-21 04:00] VITALS: BP 157/42
--- NOTE | 2016-09-21 05:28 | NUR ---
PT IS TRYING TO CRAWL OUT OF BED, DEMONSTRATES INCREASED CONFUSION AND DISORIENTATION, UNABLE TO BE REORIENTED AT THIS TIME. PT DEMONSTRATES INCREASED AGITATION, TALKING LOUDLY, SOMETIMES YELLING. WILL CONTINUE TO CONSOLE AND REORIENT. PTS PRN ATIVAN HAS BEEN D/C'D. CONTINUE TO MONITOR CLOSELY. BED LOW, CALL LIGHT IN REACH, PT IS UNABLE TO UNDERSTAND HOW AND WHEN TO USE THE CALL LIGHT, BED ALARM ON.
[2016-09-21 05:30] LABS: BASOPHILS 0.4 % (0-2); EOSINOPHILS 1.8 % (0-7); HEMATOCRIT 32.8 % (36.0-48.0); HEMOGLOBIN 10.4 g/dL (12-16); IMMATURE GRANULOCYTES 1.8 % (0-5); MCH 31.5 pg (26.0-34.0); MCHC 31.7 g/dL (31.0-37.0); MCV 99.4 fL (80.0-100.0); MEAN PLATELET VOLUME 10.3 fL (7.4-10.4); MONOCYTES 14.3 % (2-11); NEUTROPHILS 56.7 % (40-80); PLATELET COUNT 314 10x3/uL (130-400); RDW 15.9 % (11.5-14.5)
[2016-09-21 05:31] LABS: WBC 10.2 10x3/uL (4.8-10.8)
--- NOTE | 2016-09-21 05:39 | NUR ---
PT HAS PULLED IV OUT OF RIGHT FOREARM/WRIST, NO BLEEDING NOTED, CATH TIP INTACT.
[2016-09-21 05:52] LABS: ANION GAP 16.7 mmol/L (8-16); CALCIUM 8.5 mg/dL (8.5-10.1); CARBON DIOXIDE 26.7 mmol/L (21.0-32.0); POTASSIUM - SERUM 3.4 mmol/L (3.5-5.1)
[2016-09-21 05:56] LABS: CREATININE - SERUM 6.4 mg/dL (0.6-1.3)
--- NOTE | 2016-09-21 07:40 | NUR ---
AM ROUNDING- RECEIVED REPORT FROM EMBEDDED SOFTWARE ENGINEER NURSE TRANG. PT IS CURRENTLY LAYING IN BED ON BACK WITH EYES OPEN RESTING. PT APPEARS TO BE CONFUSED STATING " ARE YOU GOING TO [place], I WANT A RIDE". I INFORMED PT THAT SHE IS IN [facility] AT [facility]. ON ROOM AIR. NO MONITOR. NO IV ACCESS CURRENTLY. PER EMBEDDED SOFTWARE ENGINEER NURSE PT HAS PULLED OUT X4. RESEREVE LEFT ARM FOR AVF. NO NEED AT CURRENT TIME. BED ALARM IS ON, BED IS IN LOW POSITION, SIDE RAILS ARE UP X2, CALL LIGHT IS IN REACH, AND NON-SKID SOCKS ARE ON.
[2016-09-21 08:00] VITALS: BP 143/42
--- NOTE | 2016-09-21 09:43 | NUR ---
Patient Name: DANIELLA COFFEY Encounter No: [id number] : 1935 Primary Insurance: MEDICARE A & B Anticipated DC Date: 09-20-2016 Planned Disposition: Senior Living Facility External Planned Provider: [facility] DCP follow-up note: CM REVIEWED CHART, FAXED UPDATED NOTES TO INCLUDE NURSING NOTES FROM 09-17 TO PRESENT TO [facility], . CM CALLED ANAM OF [facility], , LEFT MESSAGE NOTIFYING OF UPDATE FOR REVIEW BEING FAXED AND ASKED FOR RETURN CALL. CM WAITING ADMISSION DETERMINATION FROM [facility]. Jesus Estrada, CASE MANAGEMENT
--- NOTE | 2016-09-21 10:09 | NUR ---
PT C/O LEG PAIN, PT GIVEN TRAMADOL PRN ORDERED FOR PAIN. PT TO DIALYSIS VIA BED.
--- NOTE | 2016-09-21 14:16 | NUR ---
PT BACK FROM DIALYSIS VIA BED.
--- NOTE | 2016-09-21 15:24 | NUR ---
CM RECEIVED CALL FROM CANDELARIA OF [facility] WHO REPORTS THAT AFTER REVIEW, [facility] WILL NOT ACCEPT PT AND CANNOT MEET PT'S NEEDS. CM NOTIFIED PT'S SPOUSE AND DAUGHTER IN ROOM. PT'S DAUGHTER UPSET THAT PT'S BEHAVIORS WERE REPORTED THE FACILITY AND SHE DOES NOT THINK THE BEHAVIORS WERE THAT BAD. CM EXPLAINED THAT ANY FACILITY CONSIDERING PT FOR REHAB WILL HAVE ACCESS TO ALL INFORMATION IN MEDICAL RECORD TO MAKE THEIR DECISION. CM DISCUSSED OTHER REHAB OPTIONS AND LOCATIONS. PT'S DAUGHTER AND SPOUSE WANT TO SPEAK TO [facility] BEFORE MAKING FURTHER DECISIONS. CM PROVIDED PT'S SPOUSE WITH LONG-TERM FACILITY CHOICE SHEET, ASKED THAT THEY NOTIFY CM SOON POSSIBLE WITH OTHER ACCEPTABLE OPTIONS SO THAT CM CAN SEND OUT REFERRALS FOR LONG-TERM REHAB. CM WAITING CHOICE'S FOR LONG-TERM REHAB FROM PT'S FAMILY. KY KUMAR, CASE MANAGEMENT
[2016-09-21 16:00] VITALS: BP 143/35
--- NOTE | 2016-09-21 17:25 | NUR ---
PT IS CURRENTLY SITTING UP IN BED WITH EYES OPEN RESTING. FAMILY MEMBERS ARE HAVING TROUBLE GETTING PT TO EAT AND IN ASSISTING PT TO EAT DINNER. I ASSISTED PT WITH DINNER AND PT IS DRINKING ENSURE SHAKE AND EATING BITES OF DINNER FOR ME. BED ALARM IS ON, BED IS IN LOW POSITION, SIDE RAILS ARE UP X2, CALL LIGHT IS IN REACH, AND NON-SKID SOCKS ARE ON. WILL CONTINUE TO MONITOR.
--- NOTE | 2016-09-21 19:52 | NUR ---
PT LYING IN BED, EYES CLOSED, RESPIRATIONS EVEN AND UNLABORED, PT IS RESTING COMFORTABLY. CONTINUE TO MONITOR CLOSELY. BED LOW, CALL LIGHT IN REACH, SIDE RAILS X 2, HOB 20 DEGREES, BED ALARM ON.
[2016-09-21 21:52] VITALS: BP 155/42
--- NOTE | 2016-09-21 22:37 | NUR ---
PT YELLING OUT IN A CONFUSED STATE, UNABLE TO BE CONSOLED AT THIS TIME. PRN ATIVAN GIVEN WITH FLEXERIL, PT C/O BEING UNCOMFORTABLE IN HER BED AT THIS TIME. CONTINUE TO MONITOR CLOSELY. BED LOW, CALL LIGHT IN REACH, SIDE RAILS X 2, HOB 30 DEGREES, BED ALARM ON.
--- NOTE | 2016-09-22 03:22 | NUR ---
PT RESTING COMFORTABLY NOW, AFTER BEING AGITATED AND CONFUSED MOST OF THIS SHIFT. THE PRN ATIVAN DID NOT HELP WITH AGITATON AND CONSTANT YELLING. PT HAS BEEN REPOSITIONED, GIVEN A TURKEY SANDWICH, REORIENTED MULTIPLE TIMES, BUT NOTHING HAS HELPED. CONTINUE TO MONITOR CLOSELY. BED LOW, CALL LIGHT IN REACH ALTHOUGH PT DOES NOT UNDERSTAND HOW AND WHEN TO USE THE CALL LIGHT, HOB 20 DEGREES, BED ALARM ON AND FUNCTIONING PROPERLY.
--- NOTE | 2016-09-22 05:19 | NUR ---
PT RESTING COMFORTABLY AT THIS TIME, CONTINUE TO MONITOR CLOSELY.
[2016-09-22 05:28] LABS: BASOPHILS 0.5 % (0-2); EOSINOPHILS 1.2 % (0-7); HEMATOCRIT 32.5 % (36.0-48.0); HEMOGLOBIN 10.2 g/dL (12-16); IMMATURE GRANULOCYTES 2.8 % (0-5); LYMPHOCYTES 27.7 % (15-50); MCH 31.7 pg (26.0-34.0); MCHC 31.4 g/dL (31.0-37.0); MCV 100.9 fL (80.0-100.0); MEAN PLATELET VOLUME 10.4 fL (7.4-10.4); MONOCYTES 15.5 % (2-11); NEUTROPHILS 52.3 % (40-80); PLATELET COUNT 297 10x3/uL (130-400); RBC 3.22 10x6/uL (4.00-5.40); RDW 16.1 % (11.5-14.5); WBC 7.8 10x3/uL (4.8-10.8)
[2016-09-22 05:43] LABS: ANION GAP 10.9 mmol/L (8-16); CALCIUM 8.1 mg/dL (8.5-10.1); POTASSIUM - SERUM 3.4 mmol/L (3.5-5.1)
[2016-09-22 05:50] LABS: CARBON DIOXIDE 34.5 mmol/L (21.0-32.0); CREATININE - SERUM 4.1 mg/dL (0.6-1.3)
[2016-09-22 06:10] VITALS: BP 143/52
--- NOTE | 2016-09-22 07:32 | NUR ---
AM ROUNDING- RECEIVED REPORT FROM LINK AND LINK KNITTING MACHINE OPERATOR NURSE TRANG. PT IS CURRENTLY LAYING IN BED ON BACK WITH EYES CLOSED RESTING. ON ROOM AIR. NO MONITOR. NO IV ACCESS (DOCTORS ARE AWARE). RESERVE LEFT ARM FOR AVF. BED ALARM IS ON (PT IS CONFUSED). BED IS IN LOW POSITION, SIDE RAILS ARE UP X2, CALL LIGHT IS IN REACH, AND NON-SKID SOCKS ARE ON.
[2016-09-22] MEDS ORDERED: PROTONIX40 MG PO (10:36)
[2016-09-22] MEDS ORDERED: MEGACE400 MG/10 PO (10:36)
[2016-09-22] MEDS ORDERED: DIFLUCAN100 MG PO (10:53)
--- NOTE | 2016-09-22 11:18 | NUR ---
Patient Name: DANIELLA COFFEY Encounter No: [id number] : 1935 Primary Insurance: MEDICARE A & B Anticipated DC Date: 09-22-2016 Planned Disposition: Snf Facility External Planned Provider: [facility] DCP follow-up note: CM RECEIVED DISCHARGE ORDER, FAXED DISCHARGE INFORMATION TO [facility] AT [phone]. NURSE REPORT TO BE CALLED TO TANNER OF [facility], . PT TO TRANSPORT VIA AMBULANCE. KY KUMAR, CASE MANAGEMENT
[2016-09-22 12:00] VITALS: BP 129/36
--- NOTE | 2016-09-22 12:49 | NUR ---
CALLED REPORT TO [facility] AND GAVE REPORT TO FLOYD BOYER.
--- NOTE | 2016-09-22 12:58 | NUR ---
CALLED [facility] FOR AMBULANCE TRANSFER. [facility] STATES THEY WILL BE HERE IN APROX 30-45MIN.
--- NOTE | 2016-09-22 13:07 | NUR ---
D/C INSTRUCTIONS EXPLAINED TO PTS FAMILY (PT IS VERY CONFUSED). D/C INSTRUCTIONS SIGNED BY PTS . NO IV ACCESS TO REMOVE. PTS DAUGHTER IS GETTING PTS BELONGINGS TOGETHER NOW. AWAITING [facility] TO COME AND TRANSPORT PT. WILL CONTINUE TO MONITOR.
--- NOTE | 2016-09-22 13:51 | NUR ---
PT D/C VIA STRETCHER WITH EMS. [facility] IS TRANSPORTING PT TO [facility]. PTS DAUGHTER AND HAVE PTS BELONGINGS.
== END 2016-09-22 13:53 | DRG 640 ==
LOC: D.ICU 10:15 → D.M2 09-20 13:54
PROVIDERS: Internal Medicine; Internal Medicine Nephrology; ADMIT Internal Medicine Nephrology
PROC: 5A1D60Z (ICD-10-PCS; principal; 2016-09-10)
DX: E87.5 Hyperkalemia (principal); N18.6 End stage renal disease; I13.2 Hypertensive heart and chronic kidney disease with heart failure and with stage 5 chronic kidney disease, or end stage renal disease; F01.51 Vascular dementia, unspecified severity, with behavioral disturbance; N39.0 Urinary tract infection, site not specified; R00.1 Bradycardia, unspecified; I50.9 Heart failure, unspecified; Z99.2 Dependence on renal dialysis; Z74.09 Other reduced mobility; I25.10 Atherosclerotic heart disease of native coronary artery without angina pectoris; I69.919 Unspecified symptoms and signs involving cognitive functions following unspecified cerebrovascular disease; J44.9 Chronic obstructive pulmonary disease, unspecified; F32.9 Major depressive disorder, single episode, unspecified; S32.10XD Unspecified fracture of sacrum, subsequent encounter for fracture with routine healing; W19.XXXD Unspecified fall, subsequent encounter; Z91.81 History of falling; B95.2 Enterococcus as the cause of diseases classified elsewhere